=== PATIENT | male | born 1945 | race Hispanic/Latino ===

== ENCOUNTER 2016-11-19 10:01 | Inpatient (IN) | payer MEDICARE, BC ==
[2016-11-19 10:05] VITALS: BMI 25.0
[2016-11-19 10:09] LABS: ADD MANUAL DIFF? NO
[2016-11-19] MEDS ORDERED: Morphine 2 mg/ml ISec ONE (10:13)
[2016-11-19] MEDS ORDERED: Morphine 2 mg/ml ISec IVP STA (10:13)
--- NOTE | 2016-11-19 10:14 | ED PDOC ---
Arrival/HPI - General Time Seen by Provider: 11/19/16 10:05 Historian: Patient, EMS - History of Present Illness Narrative History of Present Illness (Text): 11/19/16 10:12 Bebeto Esposito is a 71 year old male who presents to the emergency department for evaluation of chest pain which began an hour prior to arrival while cleaning his pool. Patient took 2 325mg Aspirin at home prior to arrival of paramedics. EKG done by paramedics revealed possible STEMI. Patient also developed some nausea on his way to emergency department. Denies any difficulty breathing or any other complaints. Time/Duration: 1 hour Symptom Onset: Sudden Symptom Course: Worsening Activities at Onset: Light Context: Home Past Medical History - Provider Review Nursing Documentation Reviewed: Yes Family/Social History - Physician Review Nursing Documentation Reviewed: Yes Family/Social History: No Known Family HX Allergies/Home Meds Allergies/Adverse Reactions: Allergies No Known Allergies Allergy (Verified 11/19/16 10:04) Home Medications: Home Meds Medication Instructions Recorded Confirmed No Known Home Med 11/19/16 11/19/16 Review of Systems - Physician Review All systems were reviewed & negative as marked: Yes - Review of Systems Constitutional: Normal. absent: Fatigue, Fevers Respiratory: absent: SOB, Cough, Sputum Cardiovascular: Chest Pain. absent: Palpitations Gastrointestinal: Nausea Neurological: Normal Psychiatric: Normal Physical Exam Vital Signs Reviewed: Yes Vital Signs Temp Pulse Resp BP Pulse Ox 11/19/16 10:39 48 L 16 132/72 100 11/19/16 10:16 48 L 20 141/74 100 11/19/16 10:05 97.8 F 45 L 19 131/64 100 Temperature: Afebrile Blood Pressure: Normal Pulse: Bradycardic Respiratory Rate: Normal Appearance: Positive for: Non-Toxic Pain Distress: Mild Mental Status: Positive for: Alert and Oriented X 3 - Systems Exam Head: Present: Atraumatic, Normocephalic Pupils: Present: PERRL Conjunctiva: Present: Normal Cardiovascular: Present: Regular Rate and Rhythm, Normal S1, S2. No: Murmurs Neurological: Present: GCS=15, CN II-XII Intact, Speech Normal Skin: Present: Warm, Dry, Normal Color. No: Rashes Psychiatric: Present: Alert, Oriented x 3, Normal Insight, Normal Concentration Medical Decision Making ED Course and Treatment: 11/19/16 10:15 Impression: A 71 year old male who presents to the emergency department complaining of chest pressure which began an hour prior while cleaning pool. Differential Diagnosis include but are not limited to: STEMI Plan: -- Labs, Cardiac enzymes -- EKG -- Chest X-ray -- Heparin -- Morphine -- Zofran -- Brilinta -- Reassess and disposition Progress Notes: 11/19/16 10:12 EKG interpreted by me: ST elevations greater than 2 mm in Leads II, III and aVF. Reciprocal changes in leads V1,V2,V3, I and aVL. 11/19/16 10:13 Patient took 2 325 Aspirin at home prior to arrival. Case discussed with Dr. Lozoya, laboratory courier, who recommends to start patient on Heparin 5000, 180mg Brilinta, and 2mg Morphine IV to control pain. Accepts patient for Catheterization. I discussed case with family, and daughter, who were at bedside to explain to them plan for family member to go to [facility]. 11/19/16 10:27 Chest X-ray interpreted by me: No acute findings. - Critical Care Critical Care Minutes: 30 minutes - Lab Interpretations Lab Results: 11/19/16 10:00 11/19/16 10:00 Lab Results 11/19/16 10:37: Blood Type A POSITIVE, Antibody Screen Negative, BBK History Checked No verified bt 11/19/16 10:00: Sodium 144, Potassium 4.7, Chloride 104, Carbon Dioxide 29, Anion Gap 16, BUN 20, Creatinine 1.2, Est GFR ( Amer) > 60, Est GFR (Non- Af Amer) 59, Random Glucose 140 H, Calcium 9.2, Total Bilirubin 0.9, AST 29, ALT 33, Alkaline Phosphatase 54, Lactate Dehydrogenase 382, Total Creatine Kinase 97, Troponin I 0.04, Total Protein 7.8, Albumin 4.4, Globulin 3.5, Albumin/Globulin Ratio 1.3 11/19/16 10:00: PT 11.2, INR 1.04, APTT 25.0 11/19/16 10:00: WBC 8.3, RBC 4.41, Hgb 14.3, Hct 42.0, MCV 95.2, MCH 32.4, MCHC 34.0, RDW 12.6, Plt Count 201, MPV 11.7 H, Gran % 55.5, Lymph % (Auto) 36.0 H, [place] % (Auto) 6.4 H, Eos % (Auto) 1.4 L, Baso % (Auto) 0.7, Gran # 4.61, Lymph # 3.0, [place] # 0.5, Eos # 0.1, Baso # 0.06 I have reviewed the lab results: Yes - RAD Interpretation Radiology Orders: 11/19/16 10:05 CHEST PORTABLE [RAD] Stat - Medication Orders Current Medication Orders: Discontinued Medications Atropine Sulfate (Atropine) Confirm Administered Dose 1 mg .ROUTE .STK-MED ONE Stop: 11/19/16 10:19 Atropine Sulfate (Atropine) Confirm Administered Dose 1 mg .ROUTE .STK-MED ONE Stop: 11/19/16 11:17 Eptifibatide (Integrilin Bolus) Confirm Administered Dose 40 mg IVP .STK-MED ONE Stop: 11/19/16 10:56 Fentanyl (Fentanyl) Confirm Administered Dose 100 mcg .ROUTE .STK-MED ONE Stop: 11/19/16 10:20 Furosemide (Lasix) Confirm Administered Dose 100 mg .ROUTE .STK-MED ONE Stop: 11/19/16 11:42 Heparin Sodium (Porcine) (Heparin) Confirm Administered Dose 5,000 units .ROUTE .STK-MED ONE Stop: 11/19/16 10:10 Last Admin: 11/19/16 10:10 Dose: 5,000 units Heparin Sodium (Porcine) (Heparin) 5,000 units IV ONCE ONE PRN Reason: Protocol Stop: 11/19/16 10:13 Last Admin: 11/19/16 10:29 Dose: Heparin Sodium (Porcine) (Heparin) Confirm Administered Dose 10,000 units .ROUTE .STK-MED ONE Stop: 11/19/16 10:20 Nitroglycerin/Dextrose (Nitroglycerin 50 Mg/250 Ml D5w) Confirm Administered Dose 50 mg in 250 mls @ ud IV .STK-MED ONE Stop: 11/19/16 10:21 Heparin Sodium (Porcine) (Heparin 1000 Units/500 Ml Ns) Confirm Administered Dose 1,500 mls @ ud IV .STK-MED ONE Stop: 11/19/16 10:21 Eptifibatide (Integrilin) Confirm Administered Dose 75 mg in 100 mls @ ud IV .STK-MED ONE Stop: 11/19/16 10:56 Dopamine HCl/Dextrose (Dopamine 400mg/250ml D5w) Confirm Administered Dose 400 mg in 250 mls @ ud IV .STK-MED ONE Stop: 11/19/16 11:17 Iodixanol (Visipaque 320 Mg/Ml 100 Ml) Confirm Administered Dose 100 ml IV .STK- MED ONE Stop: 11/19/16 10:21 Iodixanol (Visipaque 320 Mg/Ml 200 Ml) Confirm Administered Dose 200 ml IV .STK- MED ONE Stop: 11/19/16 10:21 Iohexol (Omnipaque 350mg/Ml 50 Ml) Confirm Administered Dose 50 ml .ROUTE .STK- MED ONE Stop: 11/19/16 10:21 Lidocaine HCl (Lidocaine 2% 20ml Vial) Confirm Administered Dose 20 ml .ROUTE .STK-MED ONE Stop: 11/19/16 10:19 Midazolam HCl (Versed Inj) Confirm Administered Dose 2 mg .ROUTE .STK-MED ONE Stop: 11/19/16 10:20 Morphine Sulfate (Morphine) 2 mg IVP STAT STA Stop: 11/19/16 10:14 Last Admin: 11/19/16 10:12 Dose: 2 mg Morphine Sulfate (Morphine) Confirm Administered Dose 2 mg .ROUTE .STK-MED ONE Stop: 11/19/16 10:14 Last Admin: 11/19/16 10:29 Dose: Ondansetron HCl (Zofran Inj) Confirm Administered Dose 4 mg .ROUTE .STK-MED ONE Stop: 11/19/16 10:06 Last Admin: 11/19/16 10:05 Dose: 4 mg Ondansetron HCl (Zofran Inj) 4 mg IVP STAT STA Stop: 11/19/16 10:14 Last Admin: 11/19/16 10:30 Dose: Phenylephrine HCl (Phenylephrine Inj) Confirm Administered Dose 10 mg .ROUTE .STK-MED ONE Stop: 11/19/16 10:20 Ticagrelor (Brilinta) Confirm Administered Dose 180 mg .ROUTE .STK-MED ONE Stop: 11/19/16 10:10 Last Admin: 11/19/16 10:10 Dose: 180 mg Ticagrelor (Brilinta) 180 mg PO STAT STA Stop: 11/19/16 10:14 Last Admin: 11/19/16 10:29 Dose: - Scribe Statement The provider has reviewed the documentation as recorded by the Scribe Francine Melton Provider Attestation: All medical record entries made by the Scribe were at my direction and personally dictated by me. I have reviewed the chart and agree that the record accurately reflects my personal performance of the history, physical exam, medical decision making, and the department course for this patient. I have also personally directed, reviewed, and agree with the discharge instructions and disposition. Disposition/Present on Arrival - Present on Arrival Any Indicators Present on Arrival: No - Disposition Have Diagnosis and Disposition been Completed?: Yes Diagnosis: STEMI (ST elevation myocardial infarction) Disposition: HOSPITALIZED Disposition Time: 10:14 Patient Plan: Admission Condition: FAIR
[2016-11-19 10:15] LABS: BASO # 0.06 K/mm3 (0.0-2.0); BASO % 0.7 % (0.0-3.0); EOS # 0.1 (0.0-0.7); EOS % 1.4 % (1.5-5.0); GRAN # 4.61 (1.4-6.5); GRAN % 55.5 % (50.0-68.0); MEAN CELL VOLUME 95.2 fL (80.0-105.0); MEAN CORPUSCULAR HEMOGLOBIN 32.4 pg (25.0-35.0); MEAN PLATELET VOLUME 11.7 fl (7.0-11.0); MONO # 0.5 (0.1-0.6); MONO % 6.4 % (1.0-6.0); PLATELET COUNT 201 10^3/uL (120.0-450.0); RED CELL DISTRIBUTION WIDTH 12.6 % (11.5-14.5); WHITE BLOOD COUNT 8.3 10^3/ul (4.5-11.0)
[2016-11-19] MEDS ORDERED: Lidocaine 2% Inj (20ml) ONE (10:18)
[2016-11-19] MEDS ORDERED: Phenylephrine 10 mg/ml Inj ONE (10:19)
[2016-11-19] MEDS ORDERED: Midazolam 2 MG/2 ML VIAL ONE (10:19)
[2016-11-19] MEDS ORDERED: Iodixanol 320 MG/ML 200 ML BOTTLE IV ONE (10:20)
[2016-11-19] MEDS ORDERED: Iodixanol 320 MG/ML 100 ML BOTTLE IV ONE (10:20)
[2016-11-19] MEDS ORDERED: Iohexol 350mgl/ml 50 ML ONE (10:20)
[2016-11-19] MEDS ORDERED: Nitroglycerin 50mg in D5W 0 MG/0 ML BOTTLE IV ONE (10:20)
[2016-11-19 10:22] LABS: BLOOD UREA NITROGEN 20 mg/dL (7-21); GFR AFRICAN-AMERICAN > 60; GLUCOSE,RANDOM 140 mg/dL (70-110)
[2016-11-19 10:23] LABS: ALB/GLOB RATIO 1.3 (1.1-1.8); ALKALINE PHOSPHATASE 54 U/L (38-133); ALT/SGPT 33 U/L (7-56); AST/SGOT 29 U/L (15-59); BILIRUBIN,TOTAL 0.9 mg/dL (0.2-1.3); CALCIUM 9.2 mg/dL (8.4-10.5); CARBON DIOXIDE 29 mmol/L (21-33); CHLORIDE 104 mmol/L (98-107); INR 1.04 (0.93-1.08); POTASSIUM 4.7 mmol/L (3.6-5.0); SODIUM 144 mmol/L (132-148); TOTAL PROTEIN 7.8 g/dL (5.8-8.3)
[2016-11-19 10:34] LABS: TROPONIN I 0.04 ng/mL
--- NOTE | 2016-11-19 10:41 | RAD ---
HISTORY: chest pain COMPARISON: No prior FINDINGS: LUNGS: Slightly low lung volumes with minor bibasilar atelectasis. PLEURA: No significant pleural effusion identified, no pneumothorax apparent. CARDIOVASCULAR: Mild cardiomegaly. OSSEOUS STRUCTURES: Minor multilevel degenerative spondylosis of the thoracic spine VISUALIZED UPPER ABDOMEN: Normal. OTHER FINDINGS: None. IMPRESSION: Slightly low lung volumes with minor bibasilar atelectasis Mild cardiomegaly.
[2016-11-19] MEDS ORDERED: Eptifibatide 0.75 mg/ml 75 MG/100 ML BOTTLE IV ONE (10:55)
[2016-11-19] MEDS ORDERED: Eptifibatide 20 mg/10mL Inj IVP ONE (10:55)
[2016-11-19] MEDS ORDERED: DOPamine 400mg/250ml D5W 400 MG/250 ML BAG IV ONE (11:16)
--- NOTE | 2016-11-19 11:34 | CP.PCM.PN ---
Subjective - Date & Time of Evaluation Date of Evaluation: 11/19/16 Time of Evaluation: 10:40 - Subjective Subjective: Patient came in for c/o chest pain. Evaluation in the ER revealed STEMI. After initial treatment in the ER,pt was transferred to the labor mediator by RN from the ER the nursing hydrochloric manufacturing supervisor and myself. He was on O2 and cardiac moniter while he was being transferred. Dr Rashid came in to do the procedure. Objective - Vital Signs/Intake and Output Vital Signs (last 24 hours): Temp Pulse Resp BP Pulse Ox 97.8 F 48 L 16 132/72 100 11/19/16 10:05 11/19/16 10:39 11/19/16 10:39 11/19/16 10:39 11/19/16 10:39 - Labs Labs: 11/19/16 10:00 11/19/16 10:00 PT 11.2 Seconds (9.9-11.8) 11/19/16 10:00 INR 1.04 (0.93-1.08) 11/19/16 10:00 APTT 25.0 Seconds (23.7-30.8) 11/19/16 10:00
[2016-11-19] MEDS: Eptifibatide 0.75 mg/ml 75 MG/100 ML BOTTLE IV SCH ×2 (12:05→19:15)
[2016-11-19] MEDS ORDERED: Sodium Chloride 0.9% 1,000 ML IV SCH (12:15)
[2016-11-19 15:45] LABS: ADD MANUAL DIFF? NO
[2016-11-19 15:55] LABS: BASO # 0.01 K/mm3 (0.0-2.0); BASO % 0.1 % (0.0-3.0); GRAN # 7.85 (1.4-6.5); GRAN % 89.1 % (50.0-68.0); HEMATOCRIT 44.1 % (42.0-52.0); LYMPH # 0.6 (1.2-3.4); LYMPH % 6.5 % (22.0-35.0); MEAN CELL VOLUME 94.2 fL (80.0-105.0); MEAN CORPUSCULAR HEMOGLOBIN 32.7 pg (25.0-35.0); MEAN CORPUSCULAR HGB CONC 34.7 g/dl (31.0-37.0); MEAN PLATELET VOLUME 11.8 fl (7.0-11.0); MONO # 0.4 (0.1-0.6); MONO % 4.3 % (1.0-6.0); PLATELET COUNT 162 10^3/uL (120.0-450.0); RED CELL DISTRIBUTION WIDTH 12.6 % (11.5-14.5); WHITE BLOOD COUNT 8.8 10^3/ul (4.5-11.0)
[2016-11-19 16:01] LABS: BLOOD UREA NITROGEN 19 mg/dL (7-21); CARBON DIOXIDE 30 mmol/L (21-33); CHLORIDE 101 mmol/L (98-107); GFR AFRICAN-AMERICAN > 60; GLUCOSE,RANDOM 123 mg/dL (70-110); POTASSIUM 3.8 mmol/L (3.6-5.0); SODIUM 144 mmol/L (132-148)
[2016-11-19 16:15] LABS: TROPONIN I 23.3 ng/mL
--- NOTE | 2016-11-19 18:15 | CON ---
DATE: 11/19/2016 REQUESTING PHYSICIAN: Dr. Lozoya. CHIEF COMPLAINT: The patient presented with chest pain/STEMI. HISTORY OF PRESENT ILLNESS: The patient is a 71-year-old male that presented to the Emergency Room f or evaluation of chest pain. He stated that he was cleaning his pool at home and the pain came on. He also had significant diaphoresis and sweating and stated that he took two 325 mg aspirin at home p rior to the paramedics arriving. He has a history of GERD and states that he has been taking medicat ion for that for many years. No past history of any cardiac or pulmonary disease and no hypertension , no diabetes. PAST MEDICAL HISTORY: As above. ALLERGIES: He has no known allergies. CURRENT MEDICATIONS: Can be evaluated as per the nurse's intake form. SOCIAL HISTORY: The patient has no history of smoking, EtOH abuse or drug abuse. FAMILY HISTORY: Noncontributory. REVIEW OF SYSTEMS: CONSTITUTIONAL: All negative. HEENT: All negative. RESPIRATORY: All negative. CARDIOVASCULAR: The patient had the chest pain and the diaphoresis. GASTROINTESTINAL: Did have the chest discomfort and nauseousness. GENITOURINARY: All negative. MUSCULOSKELETAL: All negative. NEUROPSYCHIATRIC: All negative. HEMATOLOGIC: All negative. IMMUNOLOGIC: All negative. INTEGRITY: All negative. ENDOCRINE: All negative. PHYSICAL EXAMINATION: VITAL SIGNS: Note that his temperature is 97.8, his pulse is 45, respirations are 19 and BP is 131/6 4. O2 saturation is 100%. HEAD: Atraumatic, normocephalic. EYES: Reactive to light. EARS, NOSE AND THROAT: Seem to be within normal limits. NECK: Supple, no JVD, no thyroid enlargement, no lymph nodes. HEART: Has a regular rate and rhythm. Normal S1, S2. No significant murmurs or gallops. LUNGS: Reveal good breath sounds bilaterally. ABDOMEN: Soft, nontender, normal bowel sounds. No organomegaly noted. GENITALIA AND RECTAL: Deferred. MUSCULOSKELETAL: No joint deformities. EXTREMITIES: Reveal no edema. NEUROLOGIC: He seemed to be grossly intact. As far as his chest x-ray, it reveals no acute findings. LABORATORY DATA: Reveals a white count of 8.3, hemoglobin of 14.3, hematocrit 42.0 with platelets of 201,000. Sodium is 144, potassium 4.7, chloride 104, CO2 of 29 with a BUN of 20, creatinine of 1.2 and a glucose of 140. IMPRESSION: This patient had a ST-segment myocardial infarction as well as on chest x-ray is noted t o have mild cardiomegaly. He has a history of GERD. The patient presented with chest pain and diaph oresis. PLAN: The patient had a cardiac catheterization performed and a stent was placed. We will continue with aspirin p.o. and patient will continue with his Lipitor, his Lopressor and his Zestril. The faisal bradshaw also is on Brilinta. We will observe closely here in the ICU and continue support. Follow his laboratories and continue to treat aggressively along with the other consultants and the primary care doctor. Mesfin Blankenship MD cc: [id number] TT: 11/19/2016 18:14:49 Confirmation # [id number] Dictation # [id number] mn
--- NOTE | 2016-11-19 18:38 | CON ---
DATE: 11/19/2016 REASON FOR CONSULTATION: Code STEMI. BRIEF CLINICAL HISTORY: This is a 71-year-old male with past medical history of nonobstructive coron steve artery disease, status post cardiac catheterization many years ago, history of gastroesophageal r eflux, who was complaining of chest pain, family history of coronary artery disease, was always mitzy rned about the heart rate so patient came to the Emergency Room. Found to have ST segment elevation. Code STEMI was activated and Dr. Lozoya chronic specialist was called. Dr. Lozoya called me the patient - david dumont got stuck in traffic on the bridge, so he asked me to help him to see the patient and do the code S ONUR, so I saw the patient. The patient was on way to the confectionery laboratory manager. Discussed with the . The i nformation obtained from the . Risks, benefits, alternatives explained. The patient agreed to p roceed for cardiac catheterization. PAST MEDICAL HISTORY: Significant for cardiac catheterization many years ago, nonobstructive coronar y artery disease. According to the , they were told normal coronaries/clean coronaries. History of gastroesophageal reflux. SOCIAL HISTORY: Denies smoking. Denies any history of alcohol abuse. PAST SURGICAL HISTORY: Nothing significant. FAMILY HISTORY: Significant for coronary artery disease. CURRENT MEDICATIONS: The patient was taking only a proton pump inhibitor. REVIEW OF SYSTEMS: As per HPI. PHYSICAL EXAMINATION: VITAL SIGNS: Temperature afebrile, heart rate 92, blood pressure 126/78. HEENT: PERRLA. Extraocular muscles intact. NECK: Supple. No carotid bruits. No thyromegaly. CHEST: Clear to auscultation. HEART: S1, S2 regular. ABDOMEN: Soft. EXTREMITIES: Clubbing and cyanosis negative. EKG shows inferior wall myocardial infarction with reciprocal ST-T changes. BLOOD WORKUP: WBC 8.3, hemoglobin 14.3, hematocrit 42.0, platelet count 201. Chemistry shows sodium 144, potassium 4.7, chloride 104, carbon dioxide 20, anion gap of 16, BUN 20, creatinine 1.2. IMPRESSION: Acute code ST-elevation myocardial infarction, acute inferior wall myocardial infarction , borderline diabetes first reading. RECOMMENDATION: Will give Brilinta loading, will give Integrilin loading, heparin 5000. Risks, bene fits, and alternatives explained to the patient. Will proceed for cardiac catheterization. Further recommendations after cardiac catheterization. Thank you, Dr. Puga, for providing the opportunity in taking care of the patient. Home Rashid MD cc:Fransico Puga MD [id number] TT: 11/19/2016 18:37:15 Confirmation # [id number] Dictation # [id number] mn
--- NOTE | 2016-11-19 22:06 | CARD ---
APPROVED REPORT EKG Measurement Heart [id number] <Conclusion> Sinus bradycardia Cannot rule out Anterior infarct, age undetermined Inferior injury pattern ACUTE NM Consider right ventricular involvement in acute inferior infarct Abnormal ECG
[2016-11-19] MEDS ORDERED: Sodium Bicarbonate (8.4%) 50 Meq Syringe ONE (22:46)
--- NOTE | 2016-11-19 22:51 | CARD ---
APPROVED REPORT Procedure(s) performed: Left Heart Catheterization PTCA with Stenting of Distal RCA and R PDA with TARYN HISTORY The patient is a 71 year-old male with a history of : previous diagnostic cath, previous PCI (The PCI date was ), previous valve surgery (The previous valve surgery date was ), Hx of Cath 10-15 years ago was told normal coronaries, currently no meds,and admitted with Inferior wall ME ( Code STEMI). INDICATION The indication(s) include : STEMI (>0 to less than or equal to 6 hours). CASE TECHNIQUE The patient was brought emergently to the Cardiac Catheterization Laboratory in a fasting state and was prepped and draped in a sterile manner. The right femoral groin was infiltrated with 2% Lidocaine subcutaneous anesthesia. A 6 Fr x 11 cm Brenda sheath was inserted into the right femoral artery without difficulty. Coronary angiography was performed using coronary diagnostic catheters. The left coronary system was accessed and visualized with a Diagnostic ,6 Fr JL 4 catheter. The right coronary system was accessed and visualized with a Diagnostic ,6 Fr JR 4 catheter. The left ventricle was accessed and visualized with a pig tail catheter. Left ventricular/Aortic Valve gradient assessed on pullback. Left ventriculogram was performed in CADENA projection. Closure device was deployed with a 6 Fr / 7 Fr MynxGrip without any complications. The patient tolerated the procedure well and there were no complications associated with the procedure. Vessel Analysis The patient's coronary anatomy is right dominant. The left main coronary artery is a medium size vessel with diffuse calcification noted throughout this vessel and with significant stenosis. There is a 40-50% stenosis in the mid segment. The left main bifurcates to the left anterior descending and circumflex. The left anterior descending artery is a medium size vessel with diffuse calcification noted throughout this vessel and with significant stenosis. There is a 90-95% stenosis in the mid segment. multiplestenoses Proximal to mid 80-90% in addition to above lesion and distally diffuse disease The first diagonal branch is a small size vessel with diffuse calcification noted throughout this vessel and without significant stenosis. The second diagonal branch is a small size vessel with diffuse calcification noted throughout this vessel and without significant stenosis. The circumflex artery is a medium size vessel with diffuse calcification noted throughout this vessel and with significant stenosis. There is a 95% stenosis in the proximal to midsegment. multiple stenoses The first obtuse marginal branch is a small size vessel with diffuse calcification noted throughout this vessel and with significant stenosis. The second obtuse marginal branch is a small size vessel with diffuse calcification noted throughout this vessel and with significant stenosis. The right coronary artery is a large size vessel with diffuse calcification noted throughout this vessel and with significant stenosis. There is a 99% stenosis in the distal segment. this distal RCA stenosis continues in RPDA The right posterior descending artery is a medium size vessel with diffuse calcification noted throughout this vessel and without significant stenosis. There is a 90% stenosis in the proximal segment. Left Ventricle The left ventricle is borderline in size with decreased contractility. Ischemic cardiomyopathy. The left ventricular ejection fraction is estimated to be 45-50%. The left ventricular end diastolic pressure is 20-22 mmHg. There was no gradient across the aortic valve upon pullback. PCI Technique Lesion Anticoagulation was achieved with Heparin. Percutaneous coronary intervention was performed on the right posterior descending artery. The lesion stenosis prior to intervention was 90% with RANDI 1 flow. A 6 Fr JR 3.5 Guide Catheter was used to engage the ostium. BALLOON DILATION A Balloon catheter 2.0 x 15 mm Sprinter RX was inserted and inflated up to 8.00atm for 15seconds. STENT DEPLOYMENT A drug-eluting stent 2.5 x 22 mm Resolute TARYN was inserted and inflated up to 9.00atm for 26seconds. Final angiography reveals 0 % stenosis with RANDI 3 flow. PCI Technique Lesion 2 Percutaneous Coronary Intervention was performed on the distal right coronary artery. The lesion stenosis prior to intervention was 99% with RANDI 1 flow. A 6 Fr JR 3.5 Guide Catheter was used to engage the ostium. BALLOON DILATION A Balloon catheter 2.0 x 15 mm Sprinter RX was inserted and inflated up to 14atm for 20seconds. Final angiography reveals 0 % stenosis with RANDI 3 flow. Conclusion Triple vessel CAD Distal RCA and R PDA were the culprit for IW ME. low Normal LVEf-45-50%, EDP-20-22 mmof hg. Successful PTCA with TARYN of Distal RCA and R PDA Recommendations Aggressive Medical Therapy Weight Loss Reduction Program Daily ASA and Brilanta for one year. Staged PTCA of LAD and CX in 3-4 days. cc;DR. Rory Xavier.
[2016-11-19 23:33] LABS: TROPONIN I 42.4 ng/mL
[2016-11-20 06:04] LABS: HEMATOCRIT 42.5 % (42.0-52.0); MEAN CELL VOLUME 94.4 fL (80.0-105.0); MEAN CORPUSCULAR HEMOGLOBIN 32.4 pg (25.0-35.0); MEAN CORPUSCULAR HGB CONC 34.4 g/dl (31.0-37.0); MEAN PLATELET VOLUME 12.3 fl (7.0-11.0); PLATELET COUNT 175 10^3/uL (120.0-450.0); RED CELL DISTRIBUTION WIDTH 12.7 % (11.5-14.5); WHITE BLOOD COUNT 13.1 10^3/ul (4.5-11.0)
[2016-11-20 06:19] LABS: ADD MANUAL DIFF? YES
[2016-11-20 06:42] LABS: ALB/GLOB RATIO 1.2 (1.1-1.8); ALKALINE PHOSPHATASE 54 U/L (38-133); ALT/SGPT 45 U/L (7-56); AST/SGOT 180 U/L (15-59); BILIRUBIN,TOTAL 1.1 mg/dL (0.2-1.3); BLOOD UREA NITROGEN 19 mg/dL (7-21); CALCIUM 9.1 mg/dL (8.4-10.5); CARBON DIOXIDE 30 mmol/L (21-33); CHLORIDE 103 mmol/L (98-107); CHOLESTEROL 242 mg/dL (130-200); GFR AFRICAN-AMERICAN > 60; GLUCOSE,RANDOM 118 mg/dL (70-110); MAGNESIUM 2.3 mg/dL (1.7-2.2); PHOSPHOROUS 2.6 mg/dL (2.5-4.5); POTASSIUM 4.1 mmol/L (3.6-5.0); SODIUM 143 mmol/L (132-148)
[2016-11-20 07:04] LABS: BAND 4 % (0-2); NEUTROPHIL 83 % (50.0-70.0); PLATELET ESTIMATE NORMAL (NORMAL); TOXIC GRANULATION SLIGHT
--- NOTE | 2016-11-20 09:27 | PN ---
DATE: 11/20/2016 REASON FOR CONSULTATION AND FOLLOWUP: Acute inferior wall myocardial infarction, status post primary angioplasty. BRIEF CLINICAL HISTORY: A 71-year-old male with a past medical history significant for gastroesophag eal reflux, history of cardiac catheterization many years ago at [facility]. Admitted w ith inferior wall IN, is status post emergent angioplasty with a drug-eluting stent in distal RCA and PDA was done (RPDA was done). The patient is stable. Denies any chest pain, shortness of breath. Integrilin was discontinued at 5 a.m., completed 18 hours. Denies any chest pain, shortness of breat h, any palpitation. PHYSICAL EXAMINATION: VITAL SIGNS: Temperature afebrile, heart rate 52, blood pressure 118/58. HEENT: PERRLA. Extraocular muscles intact. NECK: Supple. No carotid bruits. No thyromegaly. CHEST: Clear to auscultation. HEART: S1, S2 regular. ABDOMEN: Soft. EXTREMITIES: Clubbing, cyanosis negative. BLOOD WORKUP: WBC 13.1, hemoglobin 14.6, hematocrit 42.5, platelet count 175. Chemistry shows sodiu m , potassium 4. , chloride 103, carbon dioxide 30, anion gap of 14, BUN , creatinine 1 .2. Troponin trending down to 27.4. Maximum CPK trend down to 1018. Maximum yesterday peak is 1106 and maximum troponin 42.4. Now is trending down. EKG pending this morning. ST elevation resolved in the telemetry. Hard copy of EKG pending. IMPRESSION: Hyperlipidemia, cholesterol LDL is 157, HDL 40, total cholesterol 242, acute inferior wa ll myocardial infarction, hyperlipidemia, hypertension, borderline diabetic. RECOMMENDATION: Will continue 80 of Lasix, aspirin, Plavix. We will do the staged percutaneous curtis sluminal coronary angioplasty of left anterior descending and circumflex in a day or 2, possibly . Discussed with the patient. We will get echo. Follow closely. Get out of bed to chair, ambu late, transfer to tele. We will get hemoglobin A1c. We will continue metoprolol 25 mg daily, aspiri n 81 mg daily, Brilinta 90 mg daily. We will follow with you. Home Rashid MD cc: [id number] TT: 11/20/2016 09:26:46 Confirmation # [id number] Dictation # [id number]
--- NOTE | 2016-11-20 09:32 | HP ---
HISTORY OF PRESENT ILLNESS: The patient is a 71-year-old man with past medical history of nonobstruc tive CAD (status post cardiac catheterization several years ago which reportedly demonstrated normal coronary arteries) and GERD, who presented to [facility] for evaluation of an acute onset of substernal chest discomfort associated with dyspnea. The patient states that he was in his usual state of health until he developed the aforementioned sudden onset of chest discomfort while he was cleaning his pool. The patient took 2 tablets of aspirin 325 mg and subsequently called EMS to be br ought to the Emergency Department. Upon arrival to the ED, a code STEMI was called, given that an EK G en route demonstrated ST elevation to the inferior leads. Repeat EKG in the Emergency Department c onfirmed acute ST elevation GA to the inferior wall, and the patient was taken to the cardiac cathete rization lab with Dr. Rashid for intervention. The patient tolerated the procedure well and post-proce dure was transferred to the CCU for continued management. This morning, the patient states he feels well, offers no complaints and is looking forward to going home. PAST MEDICAL HISTORY: As per HPI. PAST SURGICAL HISTORY: None. ALLERGIES: No known drug allergies. MEDICATIONS: Prevacid 30 mg p.o. daily. FAMILY HISTORY: Significant for hypertension and coronary artery disease. SOCIAL HISTORY: The patient denies any history of tobacco use. He reports social alcohol use and de nies illicit drug abuse. REVIEW OF SYSTEMS: A 14 point review of systems is negative except as per HPI. PHYSICAL EXAMINATION: VITAL SIGNS: Temperature 98.3, pulse 72, blood pressure 124/76, respiratory rate 18, oxygen saturati on 98% on room air. GENERAL: No apparent distress. HEENT: PERRL, EOMI. No scleral icterus, no conjunctival pallor. NECK: No JVD, no bruits. LUNGS: Clear to auscultation. CARDIOVASCULAR: Regular rate and rhythm. Normal S1 and S2. ABDOMEN: Normoactive bowel sounds, soft, nontender, nondistended. EXTREMITIES: No edema. Cardiac catheterization site with no femoral bruit and no hematoma. NEUROLOGIC: Awake, alert and oriented x 3. No focal motor deficits. LABORATORY DATA: WBC 13.1 with 83% neutrophils, hemoglobin 14.6, hematocrit 43, platelets 175. Sodi um 143, potassium 4.1, chloride 103, bicarb 30, BUN 19, creatinine 1.2, glucose 118, troponin peak of 42.4. Cholesterol 242, triglycerides 151, LDL 157, HDL 40. TSH 2. DIAGNOSTIC STUDIES: EKG demonstrates acute inferior wall injury pattern. ASSESSMENT: The patient is a 71-year-old man with past medical history of nonobstructive coronary ar abdirahman disease and gastroesophageal reflux disease, who presents to [facility] with a sever al hour history of substernal chest pain, who is status post code ST-segment myocardial infarction, s tatus post cardiac catheterization with Dr. Rashid, which demonstrated triple vessel coronary artery di sease with an ejection fraction of 45% to 50% with successful placement of drug-eluting stent to the distal right coronary artery and right posterior descending artery. PLAN: 1. Acute inferior wall, status post PCI with stent placement. Continue with post-catheterization ca re as per Dr. Rashid. The patient has been counseled on lifestyle modifications and the need to enroll in a cardiac risk reduction program. Continue with aspirin 81 mg p.o. daily, Lipitor 80 mg p.o. yue ly, lisinopril 2.5 mg p.o. daily, Lopressor 25 mg p.o. b.i.d. and Brilinta 90 mg p.o. b.i.d. 2. Triple vessel CAD, status post GA, status PCI with stent placement. Continue with care as per #1 . 3. GERD. The patient to resume Prevacid 30 mg p.o. daily upon discharge. 4. Prophylaxis. GI prophylaxis not indicated as patient is eating. Continue with venodynes for DVT prophylaxis. CODE STATUS: Full code. Fransico Puga MD cc: [id number] TT: 11/20/2016 09:31:54 angelito
--- NOTE | 2016-11-20 15:38 | CARD ---
APPROVED REPORT EKG Measurement Heart [id number] [place] [id number] [id number] <Conclusion> Sinus bradycardia Inferior infarct, recent Abnormal ECG
--- NOTE | 2016-11-20 17:34 | CARD ---
APPROVED REPORT EXAM: Two-dimensional and M-mode echocardiogram with Doppler and color Doppler. INDICATION CP/LVFX 2D DIMENSIONS Left Atrium (2D)4.2 (1.6-4.0cm)IVSd1.3 (0.7-1.1cm) LVDd4.6 (3.9-5.9cm)PWd1.3 (0.7-1.1cm) LVDs3.2 (2.5-4.0cm)FS (%) 28.9 % LVEF (%)55.8 (>50%) M-Mode DIMENSIONS Aortic Root3.50 (2.2-3.7cm)Aortic Cusp Exc.1.70 (1.5-2.0cm) Aortic Valve AoV Peak Rgjabumq863.0cm/sAoV VTI35.9cmAO Peak GR.8mmHg LVOT Peak Xtlsebqw188.0cm/sLVOT VTI23.50cmAO Mean GR.5mmHg AI P 1/2 Mlny860qm Mitral Valve MV E Rbujthaf06.9cm/sMV A Yncadduz77.0cm/sE/A ratio1.1 TDI Lateral E' Peak V10.40cm/sMedial E' Peak V7.21cm/sE/Lateral E'8.4 E/Medial E'12.1 Pulmonary Valve PV Peak Ybonqafc83.6cm/sPV Peak Grad.2mmHg Tricuspid Valve TR Peak Kendmtsc744wp/sRAP LGQHXYTJ96ymMjTF Peak Gr.32mmHg ZRPR91hwYx LEFT VENTRICLE The left ventricle is normal size. There is mild concentric left ventricular hypertrophy. The left ventricular function is normal.EF-55% There is normal LV segmental wall motion. The left ventricular diastolic function is normal. No left ventricle thrombus noted on this study. There is no ventricular septal defect visualized. There is no left ventricular aneurysm. There is no mass noted in the left ventricle. RIGHT VENTRICLE The right ventricle is normal size. There is normal right ventricular wall thickness. The right ventricular systolic function is normal. ATRIA The left atrium size is normal. The right atrium size is normal. The interatrial septum is intact with no evidence for an atrial septal defect. AORTIC VALVE The aortic valve is thickened but opens well. There is mild aortic regurgitation. There is no aortic valvular stenosis. There is no aortic valvular vegetation. MITRAL VALVE The mitral valve is thickened but opens well. Mitral regurgitation is mild. There is no mitral valve stenosis. There is no evidence of mitral valve prolapse. TRICUSPID VALVE The tricuspid valve leaflets are thickened , but open well. There is mild tricuspid regurgitation.RVSp-42 mmof hg. There is no tricuspid valve stenosis. There is no tricuspid valve prolapse or vegetation. PULMONIC VALVE The pulmonic valve is borderline thickened. There is trace pulmonic valvular regurgitation. There is no pulmonic valvular stenosis. GREAT VESSELS The aortic root is normal in size. The ascending aorta is normal in size. The pulmonary artery is normal. The IVC is normal in size and collapses >50% with inspiration. PERICARDIAL EFFUSION There is no pleural effusion. There is no pericardial effusion. <Conclusion> Normal chamber Size. EF-55% Mild MR/TR/AR RVSP-42 mmof Hg S/p Code STEMI S/P Inferior wall Mi, S/P PTCA of RCA,, 24 hours ago.
[2016-11-21 07:50] LABS: ADD MANUAL DIFF? NO; BASO # 0.02 K/mm3 (0.0-2.0); BASO % 0.2 % (0.0-3.0); EOS # 0.3 (0.0-0.7); EOS % 2.8 % (1.5-5.0); GRAN # 6.71 (1.4-6.5); GRAN % 75.2 % (50.0-68.0); HEMATOCRIT 38.8 % (42.0-52.0); MEAN CELL VOLUME 94.9 fL (80.0-105.0); MEAN CORPUSCULAR HGB CONC 33.8 g/dl (31.0-37.0); MONO % 10.8 % (1.0-6.0); PLATELET COUNT 139 10^3/uL (120.0-450.0); RED CELL DISTRIBUTION WIDTH 12.8 % (11.5-14.5); WHITE BLOOD COUNT 8.9 10^3/ul (4.5-11.0)
[2016-11-21 08:09] LABS: ALB/GLOB RATIO 1.2 (1.1-1.8); ALKALINE PHOSPHATASE 45 U/L (38-133); ALT/SGPT 42 U/L (7-56); AST/SGOT 88 U/L (15-59); BILIRUBIN,TOTAL 1.2 mg/dL (0.2-1.3); BLOOD UREA NITROGEN 22 mg/dL (7-21); CALCIUM 8.4 mg/dL (8.4-10.5); CARBON DIOXIDE 28 mmol/L (21-33); CHLORIDE 103 mmol/L (98-107); GFR AFRICAN-AMERICAN > 60; GLUCOSE,RANDOM 98 mg/dL (70-110); MAGNESIUM 2.1 mg/dL (1.7-2.2); PHOSPHOROUS 2.6 mg/dL (2.5-4.5); POTASSIUM 3.8 mmol/L (3.6-5.0); SODIUM 140 mmol/L (132-148); TOTAL PROTEIN 6.7 g/dL (5.8-8.3)
--- NOTE | 2016-11-21 08:45 | PN ---
DATE: 11/21/2016 SUBJECTIVE: The patient seen and examined at bedside on the telemetry ferrara. No acute events overnig ht. He remains afebrile and hemodynamically stable. The patient also remains chest pain free status post his cardiac catheterization. This morning, he states he feels well and offers no complaints. OBJECTIVE: VITAL SIGNS: Temperature 98.7, pulse 77, blood pressure 109/63, respiratory rate 18, oxygen saturati on 100% on room air. GENERAL: No apparent distress. HEENT: PERRL, EOMI. No scleral icterus. No conjunctival pallor. NECK: No JVD, no bruits. LUNGS: Clear to auscultation. CARDIOVASCULAR: Regular rate and rhythm. Normal S1 and S2. ABDOMEN: Normoactive bowel sounds, soft, nontender, nondistended. EXTREMITIES: No edema. Cardiac catheterization site appears clean, dry and intact with no hematoma and no femoral bruit. NEUROLOGIC: Awake, alert and oriented x 3. No focal motor deficits. LABORATORY DATA: WBC 8.9 with 75% neutrophils, hemoglobin 13, hematocrit 39, platelets 139. Sodium 140, potassium 3.8, chloride 103, bicarb 28, BUN 22, creatinine 1.2. Glucose 98. Hemoglobin A1c 5.4 . IMAGING STUDIES: Transthoracic echocardiogram demonstrates normal LV size with ejection fraction of 55% with mild mitral regurg, tricuspid regurg, and aortic regurg. ASSESSMENT: The patient is a 71-year-old male with past medical history of nonobstructive coronary a rtery disease and gastroesophageal reflux disease who presents to [facility] with a sever al hour history of substernal chest pain, who is status post code ST elevation myocardial infarction, status post cardiac catheterization for acute inferior wall ST elevation myocardial infarction which demonstrated triple vessel coronary artery disease, status post placement of drug-eluting stent to t he distal right coronary artery and right posterior descending artery. PLAN: 1. Acute inferior wall OR, status post PCI with stent placement. Continue with post-catheterization care as per Dr. Rashid. 2. Triple-vessel CAD, status post OR, status post PCI with stent placement. Continue with aspirin 8 1 mg p.o. daily, Lipitor 80 mg p.o. daily, lisinopril 2.5 mg p.o. daily, Lopressor 25 mg p.o. b.i.d. and Brilinta 90 mg p.o. b.i.d. The patient is scheduled to undergo repeat cardiac catheterization fo r attempted revascularization of the remaining culprit lesions. 3. GERD. Continue with Pepcid 40 mg p.o. daily. 4. Prophylaxis. Continue with Pepcid for GI prophylaxis. DVT prophylaxis not indicated as patient is ambulatory. CODE STATUS: Full code. Fransico Puga MD cc: [phone] TT: 11/21/2016 08:44:31 Confirmation # [id number] Dictation # [id number] tn
--- NOTE | 2016-11-21 11:20 | PN ---
DATE: 11/21/2016 REASON FOR CONSULTATION AND FOLLOWUP: Acute inferior wall myocardial infarction, status post primary angioplasty of RCA and RPDA. BRIEF CLINICAL HISTORY: A 71-year-old male with no significant past medical history except gastroeso phageal reflux, cardiac catheterization many years ago, nonobstructive. Admitted with acute inferior wall NC and severe triple vessel disease, poor distal target. The patient underwent emergent angiop lasty of right coronary artery and RPDA. Getting rehabilitation and ambulating and is scheduled for PTCA of LAD and circumflex on . Denies any chest pain, shortness of breath, any palpitation. PHYSICAL EXAMINATION: VITAL SIGNS: Temperature afebrile, heart rate , blood pressure 109/63. HEENT: PERRLA. Extraocular muscles intact. NECK: Supple. No carotid bruits. No thyromegaly. CHEST: Clear to auscultation. HEART: S1, S2 regular. ABDOMEN: Soft. EXTREMITIES: Clubbing, cyanosis negative. BLOOD WORKUP: WBC 8.9, hemoglobin 13. , hematocrit 38.8, platelet count 139. Chemistry shows so dium 140, potassium 3. , chloride 103, carbon dioxide 28, anion gap of 13, BUN 22, creatinine 1.2 . Troponin 11. IMPRESSION: Troponin is trending down with CPK 407, acute inferior wall myocardial infarction, sever e triple vessel disease, poor distal target, not suitable for coronary artery bypass surgery, left an terior descending is diffusely like a thread, circumflex is also like a thread and distal right coron steve artery very small caliber, not suitable for coronary artery bypass graft, so patient underwent em ergent stent of right coronary artery and right posterior descending artery and is scheduled for cruzito scularization of left anterior descending and plus/minus circumflex on at 7:30. Discussed w ith the patient. Waiting for troponin to trend down and cool off the acute symptoms of acute myocard ial infarction. Interim, continue aspirin, continue Brilinta, continue atorvastatin, continue metopr olol, ambulate, continue 2.5 mg of lisinopril. The patient underwent yesterday echocardiography that shows normal chamber size, ejection fraction 55%, mild mitral regurgitation, mild tricuspid regurgit ation, mild aortic regurgitation, right ventricular systolic pressure of 42. Troponin is trending do wn. Maximum troponin peaked 42.4. Ambulate, discussed with the patient. We will keep n.p.o. tomorr ow after midnight Sunday for possible percutaneous transluminal coronary angioplasty of left anter ior descending and circumflex plus/minus on . Thank you, Dr. Fransico Puga, for providing us the opportunity in taking care of the patient. Home Rashid MD cc: [id number] TT: 11/21/2016 11:19:43 Confirmation # [id number] Dictation # [id number] en
--- NOTE | 2016-11-21 21:00 | CARD ---
APPROVED REPORT EKG Measurement Heart [id number] [place] 144P57 [id number] <Conclusion> Normal sinus rhythm Inferior infarct, age undetermined Cannot rule out Anterior infarct, age undetermined T wave abnormality, consider lateral ischemia Abnormal ECG
[2016-11-22 07:59] LABS: ADD MANUAL DIFF? NO
[2016-11-22 08:03] LABS: BASO # 0.05 K/mm3 (0.0-2.0); BASO % 0.6 % (0.0-3.0); EOS # 0.4 (0.0-0.7); EOS % 5.2 % (1.5-5.0); GRAN # 6.42 (1.4-6.5); GRAN % 75.6 % (50.0-68.0); HEMATOCRIT 41.5 % (42.0-52.0); LYMPH % 12.2 % (22.0-35.0); MEAN CELL VOLUME 96.3 fL (80.0-105.0); MEAN CORPUSCULAR HGB CONC 33.3 g/dl (31.0-37.0); MEAN PLATELET VOLUME 12.3 fl (7.0-11.0); MONO # 0.5 (0.1-0.6); MONO % 6.4 % (1.0-6.0); PLATELET COUNT 150 10^3/uL (120.0-450.0); RED CELL DISTRIBUTION WIDTH 12.8 % (11.5-14.5); WHITE BLOOD COUNT 8.5 10^3/ul (4.5-11.0)
[2016-11-22 08:14] LABS: BLOOD UREA NITROGEN 22 mg/dL (7-21); CALCIUM 8.7 mg/dL (8.4-10.5); CARBON DIOXIDE 29 mmol/L (21-33); CHLORIDE 102 mmol/L (98-107); GFR AFRICAN-AMERICAN > 60; GLUCOSE,RANDOM 93 mg/dL (70-110); SODIUM 140 mmol/L (132-148)
[2016-11-22 08:30] LABS: TROPONIN I 6.56 ng/mL
--- NOTE | 2016-11-22 08:35 | PN ---
DATE: 11/22/2016 SUBJECTIVE: The patient is seen and examined at bedside on the telemetry ferrara. No acute events over night. He remains afebrile and hemodynamically stable. The patient also reports that he remains bon st-pain free. He states he is ambulating around the telemetry ferrara without difficulties. Otherwise, he feels well, offers no complaints and is looking forward to going home. OBJECTIVE: VITAL SIGNS: Temperature 98.6, pulse 68, blood pressure 118/72, respiratory rate 18, oxygen saturati on 99% on room air. GENERAL: No apparent distress. HEENT: PERRL. EOMI. No scleral icterus. No conjunctival pallor. NECK: No JVD, no bruits. LUNGS: Clear to auscultation. CARDIOVASCULAR: Regular rate and rhythm. Normal S1, S2. ABDOMEN: Normoactive bowel sounds, soft, nontender, nondistended. EXTREMITIES: No edema. NEUROLOGIC: Awake, alert and oriented x 3. No focal motor deficits. LABORATORY DATA: Morning labs are pending. ASSESSMENT: The patient is a 71-year-old man with past medical history of nonobstructive coronary ar abdirahman disease and gastroesophageal reflux disease GERD, who presents to [facility] with a several-hour history of substernal chest pain, who is now status post acute inferior wall ST elevatio n myocardial infarction, status post cardiac catheterization, which demonstrated triple-vessel diseas e, status post drug eluting stent placement to the distal right coronary artery and right posterior d escending artery, and who is pending repeat cardiac catheterization to revascularize the left anterio r descending and circumflex arteries. PLAN: 1. Status post acute inferior wall DC, status post PCI with drug-eluting stent placement. The patie nt remains hemodynamically stable and chest-pain free. Input from Dr. Rashid noted and greatly appreci ated. Continue with post-cardiac catheterization care, as per Dr. Rashid. 2. Triple-vessel CAD status post DC, status post PCI with stent placement. Continue with aspirin 81 mg p.o. daily, Lipitor 80 mg p.o. daily, lisinopril 2.5 mg p.o. daily, Lopressor 25 mg p.o. b.i.d., and Brilinta 90 mg p.o. b.i.d. The patient is pending repeat cardiac catheterization for attempted r evascularization of the remaining culprit as described above. 3. GERD. Continue with Pepcid 40 mg p.o. daily. 4. Prophylaxis. Continue with Pepcid for GI prophylaxis. DVT prophylaxis is not indicated, as the patient is ambulatory. CODE STATUS: Full code. Fransico Puga MD cc: [id number] TT: 11/22/2016 08:34:30 Confirmation # [id number] Dictation # [id number] jn
--- NOTE | 2016-11-22 10:18 | PN ---
DATE: 11/22/2016 REASON FOR CONSULTATION AND FOLLOWUP: Acute inferior wall NE, status post primary angioplasty of RCA and RPDA. BRIEF CLINICAL HISTORY: A 71-year-old male with no significant past medical history except gastroeso phageal reflux admitted with acute inferior wall NE, status post stent in RCA and RPDA. Troponin is trending down. Denies any chest pain, shortness of breath, any palpitation. PHYSICAL EXAMINATION: VITAL SIGNS: Temperature afebrile, heart rate 68, blood pressure 118/72. HEENT: PERRLA. Extraocular muscles intact. NECK: Supple. No carotid bruits. No thyromegaly. CHEST: Clear to auscultation. HEART: S1, S2 regular. ABDOMEN: Soft. EXTREMITIES: Clubbing and cyanosis negative. LABORATORY DATA: Blood workup as follows: WBC 8.5, hemoglobin 13.8, hematocrit 41.5, platelet count 150. Chemistry shows sodium 140, potassium 4, chloride 102, carbon dioxide 29, anion gap of 13, BUN 22, creatinine 1.2. Troponin trended to 0.65, maximum being 42. Echo showed preserved LV function, ejection fraction 55%, mild MR, mild TR, mild AI, RV systolic pressure 42. IMPRESSION: Acute inferior wall myocardial infarction, status post primary angioplasty of right rivera nary artery. RECOMMENDATION: Keep n.p.o. after 12 midnight for PTCA of LAD and circumflex tomorrow. Discussed wi th the patient and the patient's . Interim, continue baby aspirin. Continue Brilinta 90 mg twic e a day. Continue atorvastatin. Continue metoprolol. Continue lisinopril. We will follow with you . Thank you, Dr. Puga, for providing us the opportunity in taking care of the patient. We will fo llow with you. Keep n.p.o. Home Rashid MD cc: [id number] TT: 11/22/2016 10:16:59 Confirmation # [id number] Dictation # [id number] tn
[2016-11-22] MEDS: Sodium Chloride 0.9% 1,000 ML IV SCH (17:31)
[2016-11-23 06:53] LABS: ADD MANUAL DIFF? NO
[2016-11-23] MEDS ORDERED: Iodixanol 320 MG/ML 200 ML BOTTLE IV ONE (06:55)
[2016-11-23] MEDS ORDERED: Iodixanol 320 MG/ML 100 ML BOTTLE IV ONE (06:55)
[2016-11-23] MEDS ORDERED: Iohexol 350mgl/ml 50 ML ONE (06:56)
[2016-11-23] MEDS ORDERED: Midazolam 2 MG/2 ML VIAL ONE (06:57)
[2016-11-23 07:11] LABS: BASO # 0.03 K/mm3 (0.0-2.0); BASO % 0.3 % (0.0-3.0); EOS # 0.5 (0.0-0.7); EOS % 4.4 % (1.5-5.0); GRAN # 8.58 (1.4-6.5); GRAN % 77.9 % (50.0-68.0); LYMPH # 1.3 (1.2-3.4); LYMPH % 12.1 % (22.0-35.0); MEAN CELL VOLUME 96.2 fL (80.0-105.0); MEAN CORPUSCULAR HGB CONC 33.3 g/dl (31.0-37.0); MONO # 0.6 (0.1-0.6); MONO % 5.3 % (1.0-6.0); PLATELET COUNT 174 10^3/uL (120.0-450.0); RED CELL DISTRIBUTION WIDTH 12.7 % (11.5-14.5)
[2016-11-23] MEDS ORDERED: Lidocaine 2% Inj (20ml) ONE (07:11)
[2016-11-23 07:26] LABS: ALB/GLOB RATIO 1.2 (1.1-1.8); ALKALINE PHOSPHATASE 49 U/L (38-133); ALT/SGPT 50 U/L (7-56); AST/SGOT 61 U/L (15-59); BILIRUBIN,TOTAL 1.1 mg/dL (0.2-1.3); BLOOD UREA NITROGEN 20 mg/dL (7-21); CALCIUM 8.6 mg/dL (8.4-10.5); CARBON DIOXIDE 26 mmol/L (21-33); CHLORIDE 104 mmol/L (98-107); GFR AFRICAN-AMERICAN > 60; GLUCOSE,RANDOM 106 mg/dL (70-110); POTASSIUM 4.1 mmol/L (3.6-5.0); SODIUM 140 mmol/L (132-148); TOTAL PROTEIN 7.8 g/dL (5.8-8.3)
[2016-11-23 07:30] LABS: TROPONIN I 3.45 ng/mL
[2016-11-23] MEDS ORDERED: Eptifibatide 20 mg/10mL Inj IVP ONE (07:56)
--- NOTE | 2016-11-23 09:05 | PN ---
DATE: 11/23/2016 SUBJECTIVE: The patient is seen and examined at bedside on the telemetry ferrara. No acute events over night. He remains afebrile, hemodynamically stable and chest pain free. This morning, he is schedul ed for cardiac catheterization with Dr. Rashid in an attempt to revascularize the remaining culprit les ions to the LAD and circumflex arteries. The patient states he feels well and offers no complaints. OBJECTIVE: VITAL SIGNS: Temperature 98, pulse 55, blood pressure 120/60, respiratory rate 20, oxygen saturation 99% on room air. GENERAL: No apparent distress. HEENT: PERRL, EOMI. No scleral icterus. No conjunctival pallor. NECK: No JVD, no bruits. LUNGS: Clear to auscultation. CARDIOVASCULAR: Regular rate and rhythm. Normal S1 and S2. ABDOMEN: Normoactive bowel sounds, soft, nontender, nondistended. EXTREMITIES: No edema. NEUROLOGIC: Awake, alert and oriented x 3. No focal motor deficits. LABORATORY DATA: CBC reviewed and unremarkable. CMP reviewed and unremarkable. ASSESSMENT: The patient is a 71-year-old man with a past medical history of nonobstructive coronary artery disease and gastroesophageal reflux disease, who presented to [facility] with a se veral-hour history of substernal chest pain, who is now status post acute inferior wall ST elevation myocardial infarction, status post percutaneous coronary intervention with drug-eluting stent placeme nt to the distal right coronary artery and right posterior descending artery, and who is now schedule d for repeat catheterization in an attempt to revascularize the left anterior descending and circumfl ex arteries. PLAN: 1. Status post acute inferior wall myocardial infarction, status post percutaneous coronary interven tion with drug-eluting stent placement. The patient remains hemodynamically stable and chest pain fr ee. Continue with current treatment as per Dr. Rashid. 2. Triple vessel coronary artery disease, status post myocardial infarction, status post percutaneou s coronary intervention with stent placement. Continue with aspirin 81 mg p.o. daily, Lipitor 80 mg p.o. daily, lisinopril 2.5 mg p.o. daily, Lopressor 25 mg p.o. b.i.d. and Brilinta 90 mg p.o. b.i.d. As above, patient is scheduled for cardiac catheterization this morning. We will continue with post -catheterization care as per Dr. Rashid. 3. Gastroesophageal reflux disease. Continue with Pepcid 40 mg p.o. daily. 4. Prophylaxis. Continue with Pepcid for gastrointestinal prophylaxis. Deep venous thrombosis prop hylaxis not indicated as patient is ambulatory. CODE STATUS: Full code. Fransico Puga MD cc: [id number] TT: 11/23/2016 09:04:15 Confirmation # [id number] Dictation # [id number] en
[2016-11-23] MEDS ORDERED: Sodium Chloride 0.9% 1,000 ML IV SCH (09:15)
--- NOTE | 2016-11-23 10:12 | PN ---
DATE: 11/23/2016 REASON FOR CONSULTATION AND FOLLOWUP: Acute inferior wall myocardial infarction, status post primary angioplasty of RCA. Today, patient underwent staged PTCA of LAD. BRIEF CLINICAL HISTORY: This is a 71-year-old male with no significant past medical history, history of nonobstructive coronary artery disease, cardiac catheterization many years ago. Admitted with ac [place] inferior wall AL, status post primary angioplasty of RCA and RPDA. Today, patient brought for a staged PTCA of LAD plus/minus circumflex. The patient underwent staged angioplasty of LAD with a nury g-eluting stent in LAD proximal to mid, drug-eluting stent was deployed. Distal LAD was total, very distal and has bridge collaterals, unable to cross as well as the circ has 3 hairpin turns, right ang le, unable to cross and is also not bypassable vessels. Medical treatment is recommended. Also, pic tures taken of the previous stent in right coronary artery. It was widely patent. LV gram shows eje ction fraction 55%-60%, EDP was in the range of 15. RECOMMENDATION: Continue aspirin, continue atorvastatin, continue beta davidson and CATHY. We will dis continue Brilinta because patient has a rash all over the chest and it is blanching, and change to Ef fient. POSSIBLE ALLERGY TO BRILINTA, RASH. We will check CBC, SMA-7 at 1 p.m., ambulate 3 p.m. and possible discharge tomorrow. Thank you, Dr. Fransico Puga, for providing us the opportunity in taking care of the patient. Home Rashid MD cc: [id number] TT: 11/23/2016 10:12:02 Confirmation # [id number] Dictation # [id number] en
--- NOTE | 2016-11-23 12:09 | CARD ---
APPROVED REPORT EKG Measurement Heart [id number] [place] 150P59 [id number] <Conclusion> Sinus bradycardia Inferior infarct, age undetermined Abnormal ECG
[2016-11-23 13:36] LABS: ADD MANUAL DIFF? NO
[2016-11-23 13:47] LABS: BASO # 0.03 K/mm3 (0.0-2.0); BASO % 0.3 % (0.0-3.0); EOS # 0.3 (0.0-0.7); EOS % 2.6 % (1.5-5.0); GRAN # 7.89 (1.4-6.5); GRAN % 82.6 % (50.0-68.0); HEMATOCRIT 38.9 % (42.0-52.0); LYMPH # 0.6 (1.2-3.4); LYMPH % 6.7 % (22.0-35.0); MEAN CELL VOLUME 95.3 fL (80.0-105.0); MEAN CORPUSCULAR HEMOGLOBIN 32.1 pg (25.0-35.0); MEAN CORPUSCULAR HGB CONC 33.7 g/dl (31.0-37.0); MONO # 0.8 (0.1-0.6); MONO % 7.8 % (1.0-6.0); PLATELET COUNT 137 10^3/uL (120.0-450.0); RED CELL DISTRIBUTION WIDTH 12.6 % (11.5-14.5); WHITE BLOOD COUNT 9.6 10^3/ul (4.5-11.0)
[2016-11-23 13:50] LABS: BLOOD UREA NITROGEN 19 mg/dL (7-21); CALCIUM 8.2 mg/dL (8.4-10.5); CARBON DIOXIDE 27 mmol/L (21-33); CHLORIDE 106 mmol/L (98-107); GFR AFRICAN-AMERICAN > 60; GLUCOSE,RANDOM 95 mg/dL (70-110); POTASSIUM 4.1 mmol/L (3.6-5.0); SODIUM 139 mmol/L (132-148)
[2016-11-23] MEDS: Sodium Chloride 0.9% 1,000 ML IV SCH (15:27)
--- NOTE | 2016-11-23 17:16 | CARD ---
APPROVED REPORT Procedure(s) performed: Left Heart Catheterization PTCA with Stenting of Prox to Mid LAD with TARYN HISTORY The patient is a 71 year-old male with a history of : most recent EF: 45%. (EF Method: LVG), previous diagnostic cath, previous PCI (The PCI date was 11/19/2016), hypertension , dyslipidemia , S/p inf wall [place] 3 days ago, today brought for staged PTCA of LAD. INDICATION The indication(s) include : for staged PTCA. CASE TECHNIQUE The patient was brought electively to the Cardiac Catheterization Laboratory in a fasting state and was prepped and draped in a sterile manner. The left femoral groin was infiltrated with 2% Lidocaine subcutaneous anesthesia. A Brenda 6Fr sheath was inserted into the left femoral artery without difficulty. Coronary angiography was performed using coronary diagnostic catheters. The left coronary system was accessed and visualized with a XB 3.5 catheter. The right coronary system was accessed and visualized with a Diagnostic , JR3.5 5Fr catheter. The left ventricle was accessed and visualized with a pigtail catheter. Left ventricular/Aortic Valve gradient assessed on pullback. Left ventriculogram was performed in CADENA projection. Closure device was deployed with a 6 Fr Angioseal without any complications. The patient tolerated the procedure well and there were no complications associated with the procedure. Vessel Analysis The patient's coronary anatomy is co-dominant. The left main coronary artery is a medium size vessel with diffuse calcification noted throughout this vessel and without significant stenosis. There is a 40% stenosis in the mid segment. The left main bifurcates to the left anterior descending and circumflex. The left anterior descending artery is a medium size vessel with diffuse calcification noted throughout this vessel and with significant stenosis. There is a 90% stenosis in the proximal to Mid segment. multiple stenoses, and Distal LAD diffusely diseased with 100% stenosis with bridge collaterals The first diagonal branch is a small size vessel with diffuse calcification noted throughout this vessel and without significant stenosis. The second diagonal branch is a small size vessel with diffuse calcification noted throughout this vessel and without significant stenosis. The circumflex artery is a medium size vessel with diffuse calcification noted throughout this vessel and with significant stenosis. There is a 90% stenosis in the proximal segment. Multiple stenoses with multiple hair pin turns The first obtuse marginal branch is a small size vessel with diffuse calcification noted throughout this vessel and without significant stenosis. The second obtuse marginal branch is a small size vessel with diffuse calcification noted throughout this vessel and without significant stenosis. The right coronary artery is a large size vessel with diffuse calcification noted throughout this vessel and without significant stenosis. p[atent stent in distal RCA The right posterior descending artery is a medium size vessel with diffuse calcification noted throughout this vessel and without significant stenosis. Patent stent in Distal RCA Left Ventricle The left ventricle is normal in size with normal contractility. There was no cardiomyopathy. The left ventricular ejection fraction is estimated to be 55-60%. The left ventricular end diastolic pressure is 15 mmHg. There was no gradient across the aortic valve upon pullback. PCI Technique Lesion Anticoagulation was achieved with Heparin. Percutaneous coronary intervention was performed on the proximal to Mid left anterior descending artery segment. The lesion stenosis prior to intervention was 90% with RANDI 2 flow. A XB 3.5 Guide Catheter was used to engage the ostium. BALLOON DILATION A Balloon catheter 1.5/10 was inserted and inflated up to 16atm for 20seconds. STENT DEPLOYMENT A drug-eluting stent 2.75/26 was inserted and inflated up to 14atm for 20seconds. POST STENT DEPLOYMENT BALLOON DILATION A Balloon catheter 3.0/12 was inserted and inflated up to 12atm for 20seconds. Final angiography reveals 0 % stenosis with RANDI 3 flow. COMMENTS Attempted to cross Distal LAD, but unab;le to cross ( [employer]ER with Bridge collaterals) Attempted to Cross Cx also but B/c of right angle take off and multple hair pin turns unable to cross. Conclusion Successful PTCA with TARYN of proximal to Mid LAD. Unable to cross distal LAD and Cx ( as mentioned above) Distal LAD and Cx are small calibre vessel as well and are not by passable vessel. LVEF-55-60%, EDP-15 mmof Hg. Patent stent in distal RCA and R PDA done 3-4 days ago as Code STEMI. Improvement in LV Fx , as well as decrease in LVEDP noted since previous PTCA. Recommendations Aggressive Medical TherapyCardiac Risk Reduction Program Pt. developed Rash on Brilanta, possible Allergy to Bilanta. so Changed to effient. F/U stress ytest in 6 -12 months to ensure patency of stents and monitor progreession of CAD. CC; Dr. Fransico Xavier MD
[2016-11-23 18:03] VITALS: RESP 20
[2016-11-24 01:23] VITALS: O2SAT 95
[2016-11-24 05:42] VITALS: TEMP 98.1
[2016-11-24 05:56] VITALS: PULSE 83
[2016-11-24 05:57] VITALS: BP 124/76
[2016-11-24 07:23] LABS: ADD MANUAL DIFF? NO
[2016-11-24 07:29] LABS: BASO # 0.03 K/mm3 (0.0-2.0); BASO % 0.3 % (0.0-3.0); EOS # 0.2 (0.0-0.7); EOS % 1.9 % (1.5-5.0); GRAN # 10.37 (1.4-6.5); GRAN % 87.1 % (50.0-68.0); HEMATOCRIT 41.1 % (42.0-52.0); LYMPH # 0.5 (1.2-3.4); LYMPH % 4.2 % (22.0-35.0); MEAN CELL VOLUME 94.7 fL (80.0-105.0); MEAN CORPUSCULAR HEMOGLOBIN 31.8 pg (25.0-35.0); MEAN CORPUSCULAR HGB CONC 33.6 g/dl (31.0-37.0); MEAN PLATELET VOLUME 11.8 fl (7.0-11.0); MONO # 0.8 (0.1-0.6); MONO % 6.5 % (1.0-6.0); PLATELET COUNT 145 10^3/uL (120.0-450.0); RED CELL DISTRIBUTION WIDTH 12.5 % (11.5-14.5); WHITE BLOOD COUNT 11.9 10^3/ul (4.5-11.0)
[2016-11-24 07:58] LABS: ALB/GLOB RATIO 1.2 (1.1-1.8); ALKALINE PHOSPHATASE 49 U/L (38-133); ALT/SGPT 51 U/L (7-56); AST/SGOT 39 U/L (15-59); BILIRUBIN,TOTAL 1.1 mg/dL (0.2-1.3); BLOOD UREA NITROGEN 16 mg/dL (7-21); CALCIUM 8.2 mg/dL (8.4-10.5); CARBON DIOXIDE 23 mmol/L (21-33); CHLORIDE 106 mmol/L (98-107); GFR AFRICAN-AMERICAN > 60; GLUCOSE,RANDOM 104 mg/dL (70-110); PHOSPHOROUS 3.2 mg/dL (2.5-4.5); POTASSIUM 4.1 mmol/L (3.6-5.0); SODIUM 138 mmol/L (132-148)
--- NOTE | 2016-11-24 10:00 | PN ---
DATE: 11/24/2016 REASON FOR CONSULTATION AND FOLLOWUP: Acute inferior wall MS, status post primary angioplasty of RCA . Yesterday, the patient had a staged angioplasty of LAD. BRIEF CLINICAL HISTORY: A 71-year-old male with no significant past medical history, nonobstructive coronary artery disease, status post cardiac catheterization many years ago, admitted with acute infe rior wall MS, status post primary angioplasty of RCA. Distal RCA and RPDA was done. Yesterday, the patient underwent staged PTCA of LAD, remains stable. Ejection fraction significantly improved on e second catheterization yesterday as well as LVEDP significantly decreased. Denies any chest pain, shortness of breath, any palpitation. PHYSICAL EXAMINATION: VITAL SIGNS: Temperature afebrile, heart rate 83, blood pressure 124/76. HEENT: PERRLA. Extraocular muscles intact. NECK: Supple. No carotid bruits. No thyromegaly. CHEST: Clear to auscultation. HEART: S1, S2 regular. ABDOMEN: Soft. EXTREMITIES: Clubbing and cyanosis negative. LABORATORY DATA: Blood workup as follows: WBC 11.9, hemoglobin 13.8, hematocrit 41.1 and platelet c ount 145. Chemistry shows sodium 130, potassium 4.0, chloride 106, carbon dioxide 23, anion gap of 1 3, BUN 60, creatinine 1.2. IMPRESSION: Acute inferior wall myocardial infarction, status post primary angioplasty of right rivera nary artery, status post staged percutaneous transluminal coronary angioplasty of left anterior desce nding, ejection fraction significantly improved, decreased end-diastolic pressure as well, hyperlipid emia, LDL 157. RECOMMENDATION: Continue low-dose beta-davidson, aspirin. We changed to Effient because the patient is ALLERGIC TO BRILINTA. Continue atorvastatin, continue metoprolol, lisinopril 2.5 mg as blood pres sure is tolerated. Discussed with Dr. Fransico Puga, probably the patient will get the benefit fr gina Clements at home because of circumflex has 2 hairpin turns, not suitable for PCI, could not cross wi th a wire, also not suitable for CABG. Also, distal LAD is total with bridge collaterals, could not cross as well and is not suitable for CABG as well. Thank you, Dr. Puga, for providing us the opportunity in taking care of the patient. Home Rashid MD cc:Fransico Puga MD [id number] TT: 11/24/2016 09:59:38 Confirmation # [id number] Dictation # [id number] tn
--- NOTE | 2016-11-24 10:22 | PN ---
DATE: 11/24/2016 SUBJECTIVE: The patient seen and examined at bedside on the telemetry ferrara. No acute events overnig ht. He is status post repeat cardiac catheterization by Dr. Rashid with placement of a drug-eluting st ent to the mid LAD; however, the distal LAD and circumflex arteries were unable to be crossed due to tortuous anatomy. This morning, he states he feels great, remains chest pain free, and is looking fo rward to discharge to home. OBJECTIVE: VITAL SIGNS: Temperature 98.1, pulse 83, blood pressure 124/76, respiratory rate 20, oxygen saturati on 98% on room air. GENERAL: No apparent distress. HEENT: PERRL, EOMI. No scleral icterus. No conjunctival pallor. NECK: No JVD, no bruits. LUNGS: Clear to auscultation. CARDIOVASCULAR: Regular rate and rhythm. Normal S1 and S2. ABDOMEN: Normoactive bowel sounds, soft, nontender, nondistended. EXTREMITIES: No edema. NEUROLOGIC: Awake, alert and oriented x 3. No focal motor deficits. LABORATORY DATA: WBC 11.9 with 87% neutrophils, hemoglobin 14, hematocrit 41, platelets 145. Chemis try reviewed and unremarkable. ASSESSMENT: The patient is a 71-year-old man with past medical history of nonobstructive coronary ar abdirahman disease and gastroesophageal reflux disease, who presented to [facility] with a nelia ral hour history of substernal chest pain, who is status post acute anterior wall ST elevation myocar dial infarction, status post percutaneous coronary intervention with drug-eluting stent placement to the distal right coronary artery and right posterior descending artery with subsequent repeat cathete rization with a drug-eluting stent placement to mid portion of the left anterior descending. PLAN: 1. Status post acute inferior wall myocardial infarction, status post PCI with drug-eluting stent pl acement. Continue with post-catheterization care as per Dr. Rashid. 2. Triple vessel CAD status post MD, status post PCI with stent placement. Continue with aspirin 81 mg p.o. daily, Lipitor 80 mg p.o. daily, lisinopril 2.5 mg p.o. daily, Lopressor 25 mg p.o. b.i.d., Effient 10 mg p.o. daily, and Ranexa 500 mg p.o. b.i.d. 3. GERD. Continue with Pepcid 40 mg p.o. daily. 4. Prophylaxis. Continue with Pepcid for GI prophylaxis. DVT prophylaxis not indicated as patient is ambulatory. 5. Disposition: The patient for discharge to home today. CODE STATUS: Full code. Fransico Puga MD cc: [id number] TT: 11/24/2016 10:22:06 Confirmation # [id number] Dictation # [id number] jn
--- NOTE | 2016-11-24 16:58 | CARD ---
APPROVED REPORT EKG Measurement Heart [id number] PA [id number] <Conclusion> Sinus rhythm with frequent premature ventricular complexes Inferior infarct, age undetermined Abnormal ECG
--- NOTE | 2016-11-27 11:58 | DS ---
ADMITTING DIAGNOSIS: Acute ST elevation myocardial infarction of the inferior wall. DISCHARGE DIAGNOSIS: Acute ST elevation myocardial infarction of the inferior wall, status post percutaneous coronary intervention with drug-eluting stent placement. SECONDARY DIAGNOSES: Triple-vessel coronary artery disease, gastroesophageal reflux disease. CONSULTATIONS: Dr. Rashid (cardiology). PROCEDURES: PCI with drug-eluting stent placement to the distal RCA and right PDA lesions, as well as drug-eluting stent placement to the mid portion of the LAD. IMAGING STUDIES: Chest x-ray, which demonstrated no acute pathology. HISTORY OF PRESENT ILLNESS: The patient is a 71-year-old man with past medical history of nonobstructive CAD (status post cardiac catheterization several years ago, which reportedly demonstrated normal coronary arteries) and GERD, who presented to [facility] for evaluation of acute onset of substernal chest discomfort associated with dyspnea. The patient states that he was in his usual state of health until he developed the aforementioned sudden onset of chest discomfort while cleaning his pool. The patient took 2 tablets of aspirin 325 mg, and subsequently, called EMS to be brought to the Emergency Department. Upon arrival to the Emergency Department, a code STEMI was called given that an EKG on route demonstrated ST elevation to the inferior leads. Repeat EKG in the Emergency Department confirmed acute ST elevation MA to the inferior wall territory, and the patient was taken to cardiac catheterization emergently with Dr. Rashid for intervention. The patient underwent successful PCI with drug-eluting stent placement to the distal RCA and right PDA, and was subsequently, transferred to the CCU for continued post- catheterization care status post STEMI. HOSPITAL COURSE: The patient's post-catheterization course was uncomplicated, and he was successfully transferred out of the CCU to the telemetry ferrara on hospital day #2. The patient remained afebrile, hemodynamically stable, and chest-pain free during his entire hospital stay. Given cardiac catheterization findings, which demonstrated triple-vessel CAD, the patient was advised that he will likely require staged catheterizations in an attempt to revascularize the remaining lesions to the LAD and circumflex artery. On hospital day #4, the patient was successfully taken again to the cardiac catheterization lab with Dr. Rashid and underwent placement of drug-eluting stent to the mid LAD. However , the distal LAD and circumflex arteries were unable to be crossed due to tortuous anatomy. Again, the patient's post-catheterization course was uncomplicated, and by hospital day #6, he was deemed stable for discharge to home. CONDITION: Good, improved. DISPOSITION: To home. DISCHARGE MEDICATIONS: Pepcid 40 mg p.o. daily, Lipitor 80 mg p.o. daily, aspirin 81 mg p.o. daily, Effient 10 mg p.o. daily, Lopressor 25 mg p.o. b.i.d. , lisinopril 2.5 mg p.o. daily, and Ranexa 500 mg p.o. b.i.d. DISCHARGE INSTRUCTIONS: The patient was advised to adhere to post-cardiac catheterization instructions, as per Dr. Rashid. He was also advised that if he has any recurrence of his symptoms or any development of chest pain, dyspnea, or discomfort at his cardiac catheterization site to present to his PMD or to the nearest Emergency Department immediately. FOLLOWUP: The patient to follow up with his PMD within 1 week of discharge. The patient to follow up with Dr. Rashid of cardiology as scheduled. Fransico Puga MD cc: [phone] TT: 11/27/2016 11:57:19 jn DORIAN
== END 2016-11-24 10:13 | disposition home or self-care (01) | DRG 247 ==
LOC: ED 10:01 → CCU 12:09 → 2RNO 11-20 20:32 → 2RSO 11-23 09:32
PROVIDERS: ADMIT Internal Medicine Cardiovascular Disease; ATTEND Student in an Organized Health Care Education/Training Program
PROC: 027034Z Dilation of Coronary Artery, One Artery with Drug-eluting Intraluminal Device, Percutaneous Approach (ICD-10-PCS; principal; 2016-11-23)
PROC: 4A023N7 Measurement of Cardiac Sampling and Pressure, Left Heart, Percutaneous Approach (ICD-10-PCS; 2016-11-23)
PROC: B2051ZZ Plain Radiography of Left Heart using Low Osmolar Contrast (ICD-10-PCS; 2016-11-23)
PROC: B2011ZZ Plain Radiography of Multiple Coronary Arteries using Low Osmolar Contrast (ICD-10-PCS; 2016-11-23)
PROC: 3E033PZ Introduction of Platelet Inhibitor into Peripheral Vein, Percutaneous Approach (ICD-10-PCS; 2016-11-23)
DX: I21.19 ST elevation (STEMI) myocardial infarction involving other coronary artery of inferior wall (principal); I25.10 Atherosclerotic heart disease of native coronary artery without angina pectoris; I25.5 Ischemic cardiomyopathy; I08.3 Combined rheumatic disorders of mitral, aortic and tricuspid valves; I10 Essential (primary) hypertension; K21.9 Gastro-esophageal reflux disease without esophagitis; R73.03 Prediabetes; E78.5 Hyperlipidemia, unspecified; Z82.49 Family history of ischemic heart disease and other diseases of the circulatory system

== ENCOUNTER 2017-02-13 13:47 | Observation (INO) | payer MEDICARE, BC ==
[2017-02-13 13:59] VITALS: BMI 24.3
--- NOTE | 2017-02-13 14:56 | ED PDOC ---
Arrival/HPI - General Chief Complaint: Chest Pain Time Seen by Provider: 02/13/17 14:00 Historian: Patient - History of Present Illness Narrative History of Present Illness (Text): 02/13/17 14:00 Bebeto Esposito is a 71 year old male, whose past medical history includes 2 stents placed on 11/20/16, who presents to the emergency department complaining of sudden onset chest pain about an hour ago. Patient notes that he has also had coughs since stent procedure. He says the chest pain feels like previous cardiac pain. Patient denies any radiation in his pain, abdomina pain, nausea, vomiting, fatigue, or any other complaint at this time. Medicare Nurse: Dr. Rashid Time/Duration: 1-3 hours Symptom Onset: Sudden Symptom Course: Improving Severity Level: Mild Activities at Onset: Rest Context: Home Past Medical History - Provider Review Nursing Documentation Reviewed: Yes - Infectious Disease Hx of Infectious Diseases: None - Cardiac Hx Hypertension: Yes Other/Comment: H/O cardiac cath x 2 stents - Musculoskeletal/Rheumatological Hx Falls: No - Gastrointestinal Hx Gastroesophageal Reflux: Yes - Psychiatric Hx Substance Use: No - Surgical History Hx Cardiac Catheterization: Yes (x 2 stents) - Anesthesia Hx Anesthesia: Yes Hx Anesthesia Reactions: No Hx Malignant Hyperthermia: No Family/Social History - Physician Review Nursing Documentation Reviewed: Yes Family/Social History: No Known Family HX Smoking Status: Never Smoked Hx Alcohol Use: No Hx Substance Use: No Allergies/Home Meds Allergies/Adverse Reactions: Allergies No Known Allergies Allergy (Verified 11/19/16 10:04) Home Medications: Home Meds Medication Instructions Recorded Confirmed Unobtainable 02/13/17 02/13/17 Review of Systems - Physician Review All systems were reviewed & negative as marked: Yes - Review of Systems Constitutional: absent: Fevers, Night Sweats Eyes: absent: Vision Changes ENT: absent: Hearing Changes Respiratory: absent: SOB, Cough Cardiovascular: Chest Pain Gastrointestinal: absent: Abdominal Pain Genitourinary Male: absent: Dysuria Musculoskeletal: absent: Arthralgias Skin: absent: Rash Neurological: absent: Headache Endocrine: absent: Diaphoresis Hemo/Lymphatic: absent: Adenopathy Psychiatric: absent: Anxiety Physical Exam Vital Signs Reviewed: Yes Vital Signs Temp Pulse Resp BP Pulse Ox 02/13/17 14:08 98.3 F 02/13/17 14:03 71 16 148/47 L 100 Temperature: Afebrile Pulse: Regular Respiratory Rate: Normal Appearance: Positive for: Well-Appearing, Non-Toxic, Comfortable Pain Distress: None Mental Status: Positive for: Alert and Oriented X 3 - Systems Exam Head: Present: Atraumatic, Normocephalic Pupils: Present: PERRL Conjunctiva: Present: Normal Mouth: Present: Moist Mucous Membranes Pharnyx: Present: Normal. No: ERYTHEMA, EXUDATE Neck: Present: Normal Range of Motion Respiratory/Chest: Present: Clear to Auscultation, Good Air Exchange. No: Respiratory Distress, Accessory Muscle Use Cardiovascular: Present: Regular Rate and Rhythm, Normal S1, S2. No: Murmurs Abdomen: Present: Normal Bowel Sounds. No: Tenderness, Distention, Peritoneal Signs Back: Present: Normal Inspection Upper Extremity: Present: Normal Inspection. No: Cyanosis, Edema Lower Extremity: Present: Normal Inspection. No: Edema Neurological: Present: GCS=15, CN II-XII Intact, Speech Normal Skin: Present: Warm, Dry, Normal Color. No: Rashes Psychiatric: Present: Alert, Oriented x 3, Normal Insight, Normal Concentration Medical Decision Making ED Course and Treatment: 02/13/17 14:00 Impression: 71 year old male complaining of sudden onset chest pain about an hour ago. Differential Diagnosis included but are not limited to: ACS vs anxiety vs GERD vs bronchitis Plan: -- EKG -- Chest X-ray -- Labs -- Aspirin -- Reassess and disposition Prior Visits: Notes and results from previous visits were reviewed. Patient last seen in the ED on 11/19/16 for chest pain that began an hour prior to arrival that day. Patient was admitted to hospitalist care for further evaluation. Progress Notes: 02/13/17 16:02 Patient with noted history of CAD with stents with recurrence of chest pain feeling like previous cardiac pain - initial ekg as documented. First set of CE negative. Discussed with Dr. Rashid - will need serial CE and observation on tele; discussed with Dr. Adele Puga for placement on his service. - Lab Interpretations Lab Results: 02/13/17 14:50 02/13/17 14:50 Lab Results 02/13/17 14:50: Sodium 139, Potassium 4.2, Chloride 104, Carbon Dioxide 27, Anion Gap 12, BUN 18, Creatinine 1.1, Est GFR ( Amer) > 60, Est GFR (Non- Af Amer) > 60, Random Glucose 122 H, Calcium 8.3 L, Magnesium 2.0, Total Bilirubin 0.4, AST 28, ALT 30, Alkaline Phosphatase 51, Lactate Dehydrogenase 374, Total Creatine Kinase 101, Troponin I < 0.01 D, Total Protein 6.5, Albumin 3.7, Globulin 2.8, Albumin/Globulin Ratio 1.3, Lipase 112 02/13/17 14:50: PT 11.3, INR 1.05, APTT 27.6 02/13/17 14:50: WBC 5.0 D, RBC 3.78, Hgb 12.1 L, Hct 35.9 L, MCV 95.0, MCH 32.0 , MCHC 33.7, RDW 13.4, Plt Count 123, MPV 12.1 H, Gran % 69.4 H, Lymph % (Auto) 18.0 L, Yell % (Auto) 9.0 H, Eos % (Auto) 3.2, Baso % (Auto) 0.4, Gran # 3.48, Lymph # 0.9 L, Yell # 0.5, Eos # 0.2, Baso # 0.02 I have reviewed the lab results: Yes - RAD Interpretation Radiology Orders: 02/13/17 14:35 CHEST PORTABLE [RAD] Stat - EKG Interpretation EKG Interpretation (Text): 02/13/17 16:11 NSR @ 70; inverted T waves in III, avf - unchanged from 11/21/16 (but diff from 11/24/16); normal intervals; normal axis. Interpreted by ED Physician: Yes Type: 12 lead EKG Comparison: Com.w/previous EKG - Medication Orders Current Medication Orders: Aspirin (Aspirin Chewable) 81 mg PO DAILY LES Atorvastatin Calcium (Lipitor) 40 mg PO DAILY LES Famotidine (Pepcid) 40 mg PO DAILY LES Lisinopril (Zestril) 2.5 mg PO DAILY LES Metoprolol Tartrate (Lopressor) 25 mg PO BID LSE Prasugrel (Effient) 10 mg PO DAILY LES Discontinued Medications Aspirin (Aspirin Chewable) 324 mg PO STAT STA Stop: 02/13/17 14:36 Last Admin: 02/13/17 15:23 Dose: 324 mg - Scribe Statement The provider has reviewed the documentation as recorded by the Ezequiel Duarte Provider Scribe Attestation: All medical record entries made by the Ezequiel were at my direction and personally dictated by me. I have reviewed the chart and agree that the record accurately reflects my personal performance of the history, physical exam, medical decision making, and the department course for this patient. I have also personally directed, reviewed, and agree with the discharge instructions and disposition. Disposition/Present on Arrival - Present on Arrival Any Indicators Present on Arrival: No History of DVT/PE: No History of Uncontrolled Diabetes: No Urinary Catheter: No History of Decub. Ulcer: No History Surgical Site Infection Following: None - Disposition Have Diagnosis and Disposition been Completed?: Yes Diagnosis: Chest pain Disposition: HOSPITALIZED Disposition Time: 15:45 Patient Plan: Observation, Telemetry Patient Problems: Current Active Problems Problem Status Onset Chest pain Acute Condition: FAIR
[2017-02-13 15:02] LABS: BASO # 0.02 K/mm3 (0.0-2.0); BASO % 0.4 % (0.0-3.0); EOS # 0.2 (0.0-0.7); EOS % 3.2 % (1.5-5.0); GRAN # 3.48 (1.4-6.5); GRAN % 69.4 % (50.0-68.0); HEMOGLOBIN 12.1 gm/dL (14.0-18.0); LYMPH # 0.9 (1.2-3.4); MEAN CORPUSCULAR HGB CONC 33.7 g/dl (31.0-37.0); MEAN PLATELET VOLUME 12.1 fl (7.0-11.0); MONO # 0.5 (0.1-0.6); PLATELET COUNT 123 10^3/uL (120.0-450.0); RBC 3.78 10^6/uL (3.5-6.1); RED CELL DISTRIBUTION WIDTH 13.4 % (11.5-14.5)
[2017-02-13 15:10] LABS: ALB/GLOB RATIO 1.3 (1.1-1.8); ALBUMIN 3.7 g/dL (3.0-4.8); ALT/SGPT 30 U/L (7-56); AST/SGOT 28 U/L (15-59); BLOOD UREA NITROGEN 18 mg/dL (7-21); CALCIUM 8.3 mg/dL (8.4-10.5); GFR AFRICAN-AMERICAN > 60; GFR NON-AFRICAN AMERICAN > 60; LIPASE 112 U/L (23-300)
[2017-02-13 15:14] LABS: INR 1.05 (0.93-1.08); PARTIAL THROMBOPLASTIN TIME 27.6 Seconds (23.7-30.8); PROTHROMBIN TIME 11.3 Seconds (9.9-11.8)
[2017-02-13 15:29] LABS: TROPONIN I < 0.01 ng/mL
--- NOTE | 2017-02-13 15:34 | RAD ---
HISTORY: Chest pain COMPARISON: 11/19/2016 FINDINGS: LUNGS: The lungs are well inflated and clear. PLEURA: No significant pleural effusion identified, no pneumothorax apparent. CARDIOVASCULAR: Normal. OSSEOUS STRUCTURES: No significant abnormalities. VISUALIZED UPPER ABDOMEN: Normal. OTHER FINDINGS: None. IMPRESSION: No active pulmonary disease.
--- NOTE | 2017-02-13 18:39 | CARD ---
APPROVED REPORT EKG Measurement Heart [id number] [place] [id number] <Conclusion> Normal sinus rhythm Normal ECG
[2017-02-13] MEDS ORDERED: Pneumococcal 23-Valent Vaccine IM ONE (21:16)
[2017-02-14 05:31] LABS: HEMOGLOBIN 12.7 gm/dL (14.0-18.0); MEAN CELL VOLUME 94.5 fL (80.0-105.0); MEAN CORPUSCULAR HEMOGLOBIN 31.5 pg (25.0-35.0); MEAN CORPUSCULAR HGB CONC 33.3 g/dl (31.0-37.0); MEAN PLATELET VOLUME 12.3 fl (7.0-11.0); RBC 4.03 10^6/uL (3.5-6.1); RED CELL DISTRIBUTION WIDTH 13.3 % (11.5-14.5); WHITE BLOOD COUNT 6.2 10^3/ul (4.5-11.0)
[2017-02-14 05:47] LABS: ALB/GLOB RATIO 1.4 (1.1-1.8); ALBUMIN 3.8 g/dL (3.0-4.8); ALT/SGPT 34 U/L (7-56); AST/SGOT 33 U/L (15-59); BLOOD UREA NITROGEN 13 mg/dL (7-21); CALCIUM 8.6 mg/dL (8.4-10.5); GFR AFRICAN-AMERICAN > 60; GFR NON-AFRICAN AMERICAN > 60
[2017-02-14 08:40] VITALS: RESP 18; O2SAT 98
[2017-02-14 09:06] LABS: HDL CHOLESTEROL 39 mg/dL (29-60)
[2017-02-14 09:17] LABS: LDL CHOLESTEROL 76 mg/dL (0-129)
[2017-02-14 09:19] LABS: TROPONIN I < 0.01 ng/mL
[2017-02-14 12:07] VITALS: BP 157/81; TEMP 97
--- NOTE | 2017-02-14 13:52 | HP ---
HISTORY OF PRESENT ILLNESS: The patient is a 71 year old man with a past medical history of CAD s/p inferior wall STEMI s/p PCI with placement of drug eluting stent to the distal RCA and right PDA who presented to [facility] (Formerly [facility]) for evaluation of acute onset of substernal chest heaviness. The patient states that he has been in his usual state of health since his cardiac catheterization, which was performed in 10/2016. He states that he and his went to the movie theaters and while he was sitting and enjoying the movie, he developed a sudden onset of substernal chest pressure. The patient denied any palpitations, dyspnea, diaphoresis, radiation of the chest pressure associated with the symptoms, but did state that it seemed similar in nature to the chest discomfort he experienced at the time of his ND, albeit not as intense in nature. Given his cardiac history, the patient opted for emergency department evaluation. Upon arrival to the ED, he was noted to be afebrile and hemodynamically stable and had endorsed resolution of chest discomfort. Initial laboratory studies demonstrated a negative troponin; however, given his symptoms and cardiac history, he was admitted to the telemetry ferrara so as to rule out acute coronary syndrome. PAST MEDICAL HISTORY: As per HPI, also GERD. PAST SURGICAL HISTORY: As per HPI. ALLERGIES: NO KNOWN DRUG ALLERGIES. MEDICATIONS: Pepcid 40 mg p.o. daily, Lipitor 80 mg p.o. daily, aspirin 81 mg p.o. daily, Effient 10 mg p.o. daily, Lopressor 25 mg p.o. b.i.d., Lisinopril 2.5 mg p.o. daily and Ranexa 500 mg p.o. b.i.d. FAMILY HISTORY: Significant for hypertension and CAD with ND in his father. SOCIAL HISTORY: The patient denies any history of tobacco use. He reports social alcohol use and denies illicit drug abuse. REVIEW OF SYSTEMS: A 14-point review of systems is negative except as per HPI. PHYSICAL EXAMINATION VITAL SIGNS: Temperature 98.4, pulse 69, blood pressure 136/67, respiratory rate 18, and oxygen saturation 98% on room air. GENERAL: No apparent distress. HEENT: PERRL. EOMI. No scleral icterus. No conjunctival pallor. NECK: No JVD. No bruits. CARDIOVASCULAR: Regular rate and rhythm. Normal S1 and S2. LUNGS: Clear to auscultation. ABDOMEN: Normoactive bowel sounds, soft, nontender, and nondistended. EXTREMITIES: No edema. NEUROLOGIC: Awake, alert, and oriented x3. No focal motor deficits. LABORATORY DATA: WBC 6.2, hemoglobin 12.7, hematocrit 38, platelets 133. Chemistry reviewed and unremarkable. Troponin less than 0.01 x2 sets. IMAGING STUDIES: Chest x-ray demonstrates no acute pathology. DIAGNOSTIC STUDIES: Electrocardiogram demonstrates normal sinus rhythm at 70 beats per minute. ASSESSMENT: The patient is a 71-year-old male with past medical history of CAD s/p STEMI s/p PCI with drug eluding stent placement to the distal RCA and right PDA who presents to the [facility] (Former[facility]) with sudden onset of substernal chest pressure, which has since resolved and who is admitted so as to rule out an acute coronary syndrome. PLAN: 1. Chest pain, rule out ACS. Input from Dr. Rashid of Cardiology noted and appreciated. The patient is noted to have 2 sets of cardiac enzymes, which are unremarkable and a third set is ordered and pending. The patient is also scheduled for a repeat transthoracic echocardiogram. 2. Triple vessel CAD status post ND, status post PCI with drug eluding stent placement. Continue with aspirin 81 mg p.o. daily, Lipitor 40 mg p.o. daily, lisinopril 2.5 mg p.o. daily, Lopressor 25 mg p.o. b.i.d. and Brilinta 90 mg p.o. b.i.d. 3. GERD. Continue with Pepcid 40 mg p.o. daily. 4. Prophylaxis. GI prophylaxis is not indicated as patient is eating. DVT prophylaxis is not indicated as patient is ambulatory. CODE STATUS: FULL CODE. Fransico Puga MD DORIAN
[2017-02-14 15:37] VITALS: PULSE 63
--- NOTE | 2017-02-14 15:40 | CARD ---
APPROVED REPORT EXAM: Two-dimensional and M-mode echocardiogram with Doppler and color Doppler. INDICATION Chest Pain 2D DIMENSIONS Left Atrium (2D)4.2 (1.6-4.0cm)IVSd1.0 (0.7-1.1cm) LVDd4.8 (3.9-5.9cm)PWd1.1 (0.7-1.1cm) LVDs3.0 (2.5-4.0cm)FS (%) 36.7 % LVEF (%)66.5 (>50%) M-Mode DIMENSIONS Aortic Root3.40 (2.2-3.7cm)Aortic Cusp Exc.1.70 (1.5-2.0cm) Aortic Valve AoV Peak Dgtwcauu068.0cm/Maggie Peak GR.13mmHgAI P 1/2 Ozai506tw Mitral Valve MV E Ygrslxbr35.6cm/sMV A Ofdlromf268.0cm/sE/A ratio0.7 TDI Lateral E' Peak V10.20cm/sMedial E' Peak V5.56cm/sE/Lateral E'6.5 E/Medial E'12.0 Pulmonary Valve PV Peak Rgjrtuzc692.0cm/sPV Peak Grad.6mmHg Tricuspid Valve TR Peak Zgypvaex997ky/sRAP [id number] Peak Gr.34mmHg [id number] LEFT VENTRICLE The left ventricle is normal size. There is mild concentric left ventricular hypertrophy. The left ventricular function is normal.EF-65-70% There is normal LV segmental wall motion. Transmitral Doppler flow pattern is Grade III-reversible restrictive diastolic dysfunction. No left ventricle thrombus noted on this study. There is no ventricular septal defect visualized. There is no left ventricular aneurysm. There is no mass noted in the left ventricle. RIGHT VENTRICLE The right ventricle is normal size. There is normal right ventricular wall thickness. The right ventricular systolic function is normal. ATRIA The left atrium is mildly dilated. The right atrium size is normal. The interatrial septum is intact with no evidence for an atrial septal defect. AORTIC VALVE The aortic valve is thickened but opens well. There is mild to moderate aortic regurgitation. There is no aortic valvular stenosis. There is no aortic valvular vegetation. MITRAL VALVE The mitral valve is thickened but opens well. Mitral regurgitation is mild. There is no mitral valve stenosis. There is no evidence of mitral valve prolapse. TRICUSPID VALVE The tricuspid valve leaflets are thickened , but open well. There is mild tricuspid regurgitation.RVSP-44 mmof Hg. There is no tricuspid valve stenosis. There is no tricuspid valve prolapse or vegetation. PULMONIC VALVE The pulmonic valve is borderline thickened. There is trace to mild pulmonic valvular regurgitation. There is no pulmonic valvular stenosis. GREAT VESSELS The aortic root is normal in size. The ascending aorta is normal in size. The pulmonary artery is normal. The IVC is normal in size and collapses >50% with inspiration. PERICARDIAL EFFUSION There is no pleural effusion. There is no pericardial effusion. <Conclusion> The left ventricle is normal size. There is mild concentric left ventricular hypertrophy. The left ventricular function is normal.EF-65-70% There is mild to moderate aortic regurgitation. Mitral regurgitation is mild. There is mild tricuspid regurgitation.RVSP-44 mmof Hg. The IVC is normal in size and collapses >50% with inspiration. There is no pericardial effusion. When compared from previous echo Post CO ,11/20/2016 EF significantly improved, rest of details remains same.
--- NOTE | 2017-02-14 20:35 | CON ---
DATE: 02/14/2017 CONSULT SERVICE CARDIOLOGY PHYSICIAN: Dr. Rashid. REASON FOR CONSULTATION: Followup chest pain. BRIEF CLINICAL HISTORY: A 71-year-old male with past medical history significant for coronary artery disease, status post inferior wall IL, STEMI on 11/19/2016, status post primary angioplasty of RCA and staged angioplasty of LAD on 11/27/2016, who was in a movie theatre, and then he developed some chest pain, so that they came to the emergency room. Denies any previous episode of chest pain. So far, troponin's are negative. PAST MEDICAL HISTORY: Significant for coronary artery disease, status post acute inferior wall IL dated 11/19/2016 with patient's primary angioplasty of distal RCA and RPDA with a drug-eluting stent. At that time, ejection fraction is 45% to 50%, EDP was 20 to 22. Then, patient had staged angioplasty of LAD, was done on 11/23/2016, the proximal LAD, distal LAD of small caliber vessels. Repeat catheterization showed ejection fraction significantly improved from 55% to 60%. ALLERGY: PATIENT HAS A POSSIBLE ALLERGY TO BRILINTA AND EFFIENT. SOCIAL HISTORY: Denies any history of alcohol abuse. PAST SURGICAL HISTORY: Nothing significant. CURRENT MEDICATIONS: The patient at home was taking Ranexa, prasugrel (Effient), metoprolol, Pepcid, atorvastatin. REVIEW OF SYSTEMS: As per HPI. PHYSICAL EXAMINATION: As follows: VITAL SIGNS: Temperature afebrile, heart rate 69, blood pressure 136/69. HEENT: PERRLA. Extraocular muscles intact. NECK: Supple. No carotid bruit. No thyromegaly. CHEST: Clear to auscultation. HEART: S1, S2 regular. ABDOMEN: Soft. EXTREMITIES: Clubbing and cyanosis negative. LABORATORY DATA: EKG shows normal sinus, no acute ST-T wave changes noted. Blood workup as follows: WBC 6.2, hemoglobin 12.7, hematocrit 38.1 and platelet count 133. Chemistry shows sodium 141, potassium 4.2, chloride 105, carbon dioxide 27, anion gap of 13, BUN 13, creatinine 1.1. Troponin is 0.01. IMPRESSION: Atypical chest pain, but given the history of inferior wall myocardial infarction, status post stent right coronary artery, right patent ductus arteriosus and proximal left anterior descending, we will add on third set of troponin. If third set of troponin is negative, we will get echo to assess LV function. As after the first myocardial infarction, left ventricular function was down, repeat echo. If the LV function is okay, possible discharge home today. We will follow with you. We will discuss with . Further recommendations will be made after the echo and troponin. I will add lipid profile, TSH and hemoglobin A1c. Thank you for providing me the opportunity in taking care of the patient. We will follow him in the office as an outpatient. Home Rashid MD
== END 2017-02-14 17:52 | disposition home or self-care (01) ==
LOC: ED 13:47 → ERH 15:45 → 2RNO 18:00
PROVIDERS: ADMIT Student in an Organized Health Care Education/Training Program; ATTEND Student in an Organized Health Care Education/Training Program
DX: R07.89 Other chest pain (principal); K21.9 Gastro-esophageal reflux disease without esophagitis; I25.10 Atherosclerotic heart disease of native coronary artery without angina pectoris; Z95.5 Presence of coronary angioplasty implant and graft; I25.2 Old myocardial infarction
CPT/HCPCS: 36415; 71010; 80053; 80061; 82550; 83036; 83615; 83690; 83735; 84484; 85025; 85027; 85610; 85730; 93005; 93306; 99285; G0378

== ENCOUNTER 2017-10-25 06:24 | Day surgery (SDC) | payer MEDICARE, BC ==
[2017-10-17 13:16] VITALS: BMI 25.3
--- NOTE | 2017-10-25 03:33 | HP ---
REASON FOR ADMISSION: Left heart cath, possible angioplasty, and abnormal stress test. BRIEF CLINICAL HISTORY: This is a 72-year-old male with past medical history significant for an inferior wall OK, status post primary angioplasty of right coronary artery and RPDA on 11/19/[address] Lozoya and then staged angioplasty of LAD and circumflex on 11/23/2016 by me, who had recently an abnormal stress test. The patient is scheduled for elective cardiac cath, possible angioplasty. PAST MEDICAL HISTORY: Significant for coronary artery disease, as above inferior wall OK. On 11/19/2016, the patient underwent primary angioplasty of right coronary artery and RPDA and then the patient had staged angioplasty of LAD and circumflex on 11/23/2016. SOCIAL HISTORY: Denies any smoking. Denies any history of alcohol abuse. CURRENT MEDICATIONS: Patient is taking baby aspirin 81 mg daily, Ranexa 500 p.o. b.i.d., prasugrel that is Effient 10 mg daily, metoprolol tartrate 25 p.o. b.i.d., lisinopril 2.5 mg daily, Pepcid 40 mg daily, atorvastatin 80 mg daily. ALLERGIES: NO KNOWN DRUG ALLERGIES. PREVIOUS CARDIAC WORKUP: Most recently, as follows: Patient had OK and a cardiac catheterization and stent done on 11/19/2016 of RCA and RPDA. Then, patient had a staged angioplasty of proximal to mid LAD with a TARYN. Status post PTCA of mid LAD. At that time, could not cross the balloon with distal LAD and distal circ, which were small-caliber vessels. Ejection fraction preserved. The patient is on Effient as the patient was found to be possibly allergic to Brilinta. Then, the patient had a stress test on 09/24/2017 that showed abnormal myocardial perfusion study, partially reversible medium to distal anteroseptal apical defect suspicious for ischemia, inferior defect probably secondary to continuation, ejection fraction 60%. Patient had echocardiography done on 09/17/2017 that showed small pericardial effusion, ejection fraction 65%, uino-wd-umhrnmmy aortic regurgitation, yehnc-ui-zqbu mitral regurgitation, trace tricuspid regurgitation. REVIEW OF SYSTEMS: As per HPI. PHYSICAL EXAMINATION: GENERAL: Height of the patient 5 feet 7 inches, weight of the patient 162 pounds, body mass index 25 kg/m2. HEENT: PERRLA. Extraocular muscles intact. NECK: Supple. No carotid bruit or thyromegaly. CHEST: Clear to auscultation. HEART: S1, S2 regular. ABDOMEN: Soft. EXTREMITIES: Clubbing and cyanosis negative. LABORATORY DATA: Blood workup are pending. IMPRESSION: Abnormal stress test showing anteroseptal reversible ischemia, history of primary percutaneous transluminal coronary angioplasty for inferior wall myocardial infarction in 10/2016 and then patient had staged angioplasty of left anterior descending. Abnormal stress test, gkrl-jk-hanturhz mitral regurgitation, mild tricuspid regurgitation, mild aortic regurgitation, hypertension, and hyperlipidemia. RECOMMENDATIONS: Cardiac catheterization. Last time, distal LAD and circumflex attempted, but I was unable to cross. Further recommendations will be made after the cardiac catheterization. We will follow with you. Thank you for providing us the opportunity in taking care of the patient, Bebeto Esposito. Home Rashid MD
[2017-10-25] MEDS ORDERED: Lidocaine 2% Inj (20ml) ONE (06:43)
[2017-10-25] MEDS ORDERED: Verapamil 2 ML ONE (06:43)
[2017-10-25] MEDS ORDERED: Iodixanol 320 MG/ML 100 ML BOTTLE IV ONE (06:44)
[2017-10-25] MEDS ORDERED: Iodixanol 320 MG/ML 200 ML BOTTLE IV ONE (06:44)
[2017-10-25] MEDS ORDERED: Iohexol 350mgl/ml 50 ML ONE (06:44)
[2017-10-25] MEDS ORDERED: Midazolam 2 MG/2 ML VIAL ONE (06:44)
[2017-10-25] MEDS ORDERED: Nitroglycerin 50mg in D5W 50 MG/250 ML BOTTLE IV ONE (06:45)
[2017-10-25] MEDS ORDERED: Eptifibatide 20 mg/10mL Inj IVP ONE (06:46)
[2017-10-25 07:05] LABS: BASO # 0.02 K/mm3 (0.0-2.0); BASO % 0.3 % (0.0-3.0); EOS # 0.1 (0.0-0.7); EOS % 1.8 % (1.5-5.0); GRAN # 4.21 (1.4-6.5); GRAN % 69.7 % (50.0-68.0); LYMPH # 1.3 (1.2-3.4); LYMPH % 21.4 % (22.0-35.0); MEAN CELL VOLUME 95.8 fl (80.0-105.0); MEAN CORPUSCULAR HEMOGLOBIN 32.2 pg (25.0-35.0); MEAN CORPUSCULAR HGB CONC 33.6 g/dl (31.0-37.0); MONO # 0.4 (0.1-0.6); MONO % 6.8 % (1.0-6.0); RBC 4.04 10^6/uL (3.5-6.1); RED CELL DISTRIBUTION WIDTH 12.5 % (11.5-14.5)
[2017-10-25 07:16] LABS: INR 1.1 (0.93-1.08); PARTIAL THROMBOPLASTIN TIME 28.5 Seconds (25.1-36.5); PROTHROMBIN TIME 12.7 SECONDS (9.4-12.5)
[2017-10-25 07:48] VITALS: O2SAT 99
[2017-10-25] MEDS ORDERED: Phenylephrine 10 mg/ml Inj ONE (07:49)
[2017-10-25] MEDS: Sodium Chloride 0.9% 1,000 ML IV SCH ×2 (09:59→12:53)
--- NOTE | 2017-10-25 12:11 | CPOSTOP ---
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 MISSION ANALYST: Gale Crystal, hydro plant technician. TYPE OF ANESTHESIA: Moderate conscious sedation. Total dose used 2 mg of Versed, 100 of fentanyl periodic incremental dose. Started at 1 mg of Versed and 50 of fentanyl. PRE-PROCEDURE DIAGNOSES: Coronary artery disease, status post inferior wall IN, abnormal stress test. PROCEDURE PERFORMED: Left heart catheterization and stenting of distal right coronary artery and posterior descending artery. FINDINGS: Left main 30% stenosis. Patent stent in the mid LAD, distal LAD 100% occluded, circumflex multiple stenosis 90% with 3 hairpin turn and right angle turn, not suitable for PCI. Distal RCA 80% stenosis, going into RPDA. FINAL DIAGNOSES: Right coronary artery, stented distal right coronary artery. Multivessel coronary artery disease, preserved left ventricular function. POST PROCEDURE CONDITION: Post procedure the patient's condition is stable. VASCULAR ACCESS: Left radial access, but could not advance because of the severe tortuosity, so procedure performed of the right femoral CLOSING DEVICE: Mynx applied, right femoral. TR Band on left radial. TOTAL RADIATION DOSE: 63325.0 milligray unit. FLUORO TIME: 7.3 minutes. Home Rashid MD
[2017-10-25 12:21] LABS: BASO # 0.01 K/mm3 (0.0-2.0); BASO % 0.2 % (0.0-3.0); EOS % 0.7 % (1.5-5.0); GRAN # 4.49 (1.4-6.5); GRAN % 78.6 % (50.0-68.0); HEMOGLOBIN 12.8 g/dL (14.0-18.0); LYMPH # 0.8 (1.2-3.4); LYMPH % 14.7 % (22.0-35.0); MEAN CORPUSCULAR HEMOGLOBIN 32.1 pg (25.0-35.0); MEAN CORPUSCULAR HGB CONC 33.4 g/dl (31.0-37.0); MEAN PLATELET VOLUME 11.6 fl (7.0-11.0); MONO # 0.3 (0.1-0.6); MONO % 5.8 % (1.0-6.0); RBC 3.99 10^6/uL (3.5-6.1); RED CELL DISTRIBUTION WIDTH 12.4 % (11.5-14.5); WHITE BLOOD COUNT 5.7 10^3/ul (4.5-11.0)
[2017-10-25 12:29] LABS: BLOOD UREA NITROGEN 19 mg/dL (7-21); CALCIUM 8.4 mg/dL (8.4-10.5); GFR AFRICAN-AMERICAN > 60; GFR NON-AFRICAN AMERICAN > 60
--- NOTE | 2017-10-25 13:50 | CPOSTOP ---
DATE: 10/25/2017 METAL GRADER: YOCASTA Rangel. TYPE OF ANESTHESIA: Moderate conscious sedation. Total dose of 2 mg of Versed, fentanyl 100 mcg given periodically, started 1 mg of Versed and 50 of fentanyl. PRE-PROCEDURE DIAGNOSES: Abnormal stress test, history of coronary artery disease, multiple stent. PROCEDURE PERFORMED: Left heart catheterization and stenting of distal RCA and RPDA with drug-eluting stent. FINDINGS: Left main 30 to 40% stenosis. Patent stent in Mid LAD, distal LAD totally occluded with bridge collaterals, circumflex multiple hairpin turn stenosis 90%m not suitable for PCI,not changed from before. Right coronary artery patent stent. Distal RCA has 80 to 90% stenosis with aneurysm noted going into RPDA. Preserved LV function ejection fraction 55%, EDP was in the range of 15 to 18. PROCEDURE PERFORMED: PTCA of distal RCA and PDA. POST PROCEDURE CONDITION: The patient is stable. VASCULAR ACCESS SITE: Right femoral artery for intervention. Access obtained from the left radial, but could not advance because of the tortuosity of radial. CLOSURE DEVICE: Mynx, the right femoral; TR Band on left radial. TOTAL RADIATION DOSE: 71457.0 milligray unit. FLUORO TIME: 7.3 minutes. Home Rashid MD DORIAN
[2017-10-25] MEDS ORDERED: Bacitracin 500 Units/gm Oint Foilpak UD ONE (15:17)
[2017-10-25 15:47] VITALS: RESP 74
[2017-10-25 15:48] VITALS: BP 129/66; PULSE 74; TEMP 98.6
--- NOTE | 2017-10-25 15:59 | CARD ---
APPROVED REPORT Procedure(s) performed: Left Heart Catheterization PTCA with Stenting of Distal RCA/ R PDA with TARYN HISTORY The patient is a 72 year-old male with a history of : most recent EF: 60%. (EF Method: RADIONUCLIDE), previous diagnostic cath, previous PCI (The PCI date was 11/23/2016), hypertension , dyslipidemia , Apical tschemia. INDICATION The indication(s) include : positive stress test. CASE TECHNIQUE The patient was brought electively to the Cardiac Catheterization Laboratory in a fasting state and was prepped and draped in a sterile manner. The right femoral groin was infiltrated with 2% Lidocaine subcutaneous anesthesia. A 6 Fr x 11 cm Brenda sheath was inserted into the right femoral artery without difficulty. Coronary angiography was performed using coronary diagnostic catheters. The left coronary system was accessed and visualized with a Diagnostic ,5 Fr JL 4 catheter. The right coronary system was accessed and visualized with a Diagnostic ,5 Fr JR 4 catheter. The left ventricle was accessed and visualized with a 5 Fr Pigtail 145 (Angled) catheter. Left ventricular/Aortic Valve gradient assessed on pullback. Left ventriculogram was performed in CADENA projection. Closure device was deployed with a 6 Fr / 7 Fr MynxGrip without any complications. The patient tolerated the procedure well and there were no complications associated with the procedure. LHC started from Left radial but could npot advance Catheter B/c of tortousity of left radial so right femoral access was obtained. Vessel Analysis The patient's coronary anatomy is right dominant. The left main coronary artery is a medium size vessel with diffuse calcification noted throughout this vessel and without significant stenosis. There is a 30% stenosis in the distal segment. The left anterior descending artery is a medium size vessel with diffuse calcification noted throughout this vessel and with significant stenosis. There is a 100% stenosis in the distal segment with bridge collaterals. patent stent in Mid LAD The first diagonal branch is a small size vessel with diffuse calcification noted throughout this vessel and without significant stenosis. The circumflex artery is a medium size vessel with diffuse calcification noted throughout this vessel and with significant stenosis. There is a 90% stenosis in the mid segment. multiple stenopses with multiple hair pin turns The first obtuse marginal branch is a medium size vessel with diffuse calcification noted throughout this vessel and without significant stenosis. The right coronary artery is a large size vessel with diffuse calcification noted throughout this vessel and without significant stenosis. There is a 80% stenosis in the distal segment. continued stenosis to R PDA The right posterior descending artery is a large size vessel with diffuse calcification noted throughout this vessel and with significant stenosis. There is a 80% stenosis in the ostial segment. Stenosis continued from distal RCA Left Ventricle The left ventricle is normal in size with normal contractility. There was no cardiomyopathy. The left ventricular ejection fraction is estimated to be 55%. The left ventricular end diastolic pressure is 18 mmHg. There was no gradient across the aortic valve upon pullback. PCI Technique Lesion Anticoagulation was achieved with Heparin. Percutaneous coronary intervention was performed on the distal right coronary artery. The lesion stenosis prior to intervention was 80% with RANDI 2 flow. A 6 Fr JR 4 Guide Catheter was used to engage the ostium. A [employer] 182 Interventional Guidewire was used to cross the lesion. BALLOON DILATION A Balloon catheter 2.5 x 10 mm Sprinter RX was inserted and inflated up to 10.00atm for 21seconds. STENT DEPLOYMENT A drug-eluting stent STENT RESOLUTE GELY 2.75 X18 was inserted and inflated up to 12.00atm for 8seconds. POST STENT DEPLOYMENT BALLOON DILATION A Balloon catheter 2.5 x 10 mm Sprinter RX was inserted and inflated up to 12.00atm for 8seconds. Final angiography reveals 0 % stenosis with RANDI 3 flow. Conclusion Critical diz in distal RCA continued into R PDA Patent stet in mid RCA and Mid LAD Distal LAD and circumflex are unchanged and are not suitable for PCI nor for CABG. Preserved LV Fx, EF-55%, EDP-18 mmof Hg. Successful PTCA with TARYN of distal RCA / R PDA Recommendations Daily ASA with Plavix for at least one year Aggressive Medical TherapyCardiac Risk Reduction Program Cc; Dr Fransico Xavier MD
--- NOTE | 2017-10-25 19:18 | CARD ---
APPROVED REPORT EKG Measurement Heart [id number] [id number] <Conclusion> Marked sinus bradycardia Abnormal ECG
--- NOTE | 2017-10-25 19:19 | CARD ---
APPROVED REPORT EKG Measurement Heart [id number] RI 126P5 [id number] <Conclusion> Sinus bradycardia Otherwise normal ECG
== END 2017-10-25 17:58 | disposition home or self-care (01) ==
LOC: CATH 06:24 → 2RNO 09:15 → CATH 17:58
PROVIDERS: ATTEND Internal Medicine Cardiovascular Disease
DX: I25.10 Atherosclerotic heart disease of native coronary artery without angina pectoris (principal); I08.3 Combined rheumatic disorders of mitral, aortic and tricuspid valves; I10 Essential (primary) hypertension; I31.3 Pericardial effusion (noninflammatory); E78.5 Hyperlipidemia, unspecified; I25.2 Old myocardial infarction; Z98.61 Coronary angioplasty status
CPT/HCPCS: 36415; 80048; 80061; 85025; 85175; 85610; 85730; 86850; 86900; 93005; 93458; 99152; 99153; C1725; C1760; C1769 ×2; C1887 ×3; C2629; C9600; J1327; J1644 ×2; J2250; J3010; J7040 ×2; Q9966; Q9967 ×2